=== PATIENT | female | born 1950 | race Caucasian/White ===

== ENCOUNTER → 2016-06-14 | Outpatient (CLI) | payer MEDICARE, MEDICAID ==
[2016-06-14 11:27] LABS: ABSOLUTE BASOPHILS # (AUTO) 0.1 10^3/uL (0.0-0.2); ABSOLUTE EOSINOPHILS # (AUTO) 0.2 10^3/uL (0.0-0.6); ABSOLUTE MONOCYTES (AUTO) 0.9 10^3/uL (0.1-1.4); ABSOLUTE NEUT (AUTO) 5.8 10^3/uL (1.7-8.2); BASOPHILS % (AUTO) 0.8 % (0-2); EOSINOPHILS % (AUTO) 2.1 % (0-6); HEMATOCRIT 29.5 % (36.0-47.0); HEMOGLOBIN 9.7 g/dL (12.0-15.5); HGB HCT DIFFERENCE -0.4; LYMPHOCYTES % (AUTO) 12.6 % (13-45); MEAN CORPUSCULAR HEMOGLOBIN 31.6 pg (27.0-33.4); MEAN CORPUSCULAR HGB CONC 33.1 g/dL (32.0-36.0); MEAN CORPUSCULAR VOLUME 96 fl (80-97); MONOCYTES % (AUTO) 11.3 % (3-13); RED BLOOD COUNT 3.08 10^6/uL (3.72-5.28); RED CELL DISTRIBUTION WIDTH 13.4 % (11.5-14.0); SEGMENTED NEUTROPHILS % (AUTO) 73.2 % (42-78); WHITE BLOOD COUNT 7.9 10^3/uL (4.0-10.5)
[2016-06-14 11:47] LABS: ALANINE AMINOTRANSFERASE 17 U/L (9-52); ALKALINE PHOSPHATASE 89 U/L (38-126); ANION GAP 10 (5-19); ASPARTATE AMINO TRANSFERASE 22 U/L (14-36); BILIRUBIN,TOTAL 0.4 mg/dL (0.2-1.3); BLOOD UREA NITROGEN 43 mg/dL (7-20); CALCIUM 9.3 mg/dL (8.4-10.2); CARBON DIOXIDE 20 mmol/L (22-30); CHLORIDE 113 mmol/L (98-107); CREATININE RESULT 2.87 mg/dL (0.52-1.25); GLUCOSE 105 mg/dL (75-110); MAGNESIUM 1.9 mg/dL (1.6-2.3); PHOSPHORUS 3.9 mg/dL (2.5-4.5); POTASSIUM 5.6 mmol/L (3.6-5.0); TOTAL PROTEIN 6.7 g/dL (6.3-8.2)
[2016-06-16 08:35] LABS: TACROLIMUS (FK506) 5.7 ng/mL (2.0-20.0)
== END ==
LOC: OD 09:45
PROVIDERS: ATTEND Nurse Practitioner Adult Health
DX: Z94.1 Heart transplant status (principal); Z79.899 Other long term (current) drug therapy; Z48.298 Encounter for aftercare following other organ transplant; R79.89 Other specified abnormal findings of blood chemistry
CPT/HCPCS: 36415; 80053; 80195; 80197; 83735; 84100; 85025

== ENCOUNTER 2016-06-23 10:06 | Day surgery (SDC) | payer MEDICARE, MEDICAID ==
--- NOTE | 2016-06-14 12:02 | EKG REPORT ---
SEVERITY:- ABNORMAL ECG - SINUS RHYTHM ABNORMAL T, CONSIDER ISCHEMIA, DIFFUSE LEADS : Confirmed by: Suzanna Keen MD 14-Jun-2016 12:01:04
[~2016-06-23 10:06] MED LIST: AMPICILLIN SODIUM/SULBACTAM NA 3 GM in NORMAL SALINE 100 ML IV PRN; LIDOCAINE 0.5% INJ-PF (5 MG/ML) 50 ML SDV SUBCUT PRN; NORMAL SALINE 1000 ML (RENAL PATIENTS) IV PRN
[2016-06-23] MEDS ORDERED: FENTANYL CITRATE INJ/PF 250 MCG/5 ML AMPULE ONE (10:56)
[2016-06-23] MEDS ORDERED: MIDAZOLAM 2 MG/2 ML INJ ONE (10:56)
[2016-06-23] MEDS ORDERED: EPHEDRINE SULFATE INJ 50 MG/1 ML AMPULE ONE (10:56)
[2016-06-23] MEDS ORDERED: PROPOFOL INJ 200 MG/20 ML VIAL IV ONE (10:57)
[2016-06-23] MEDS ORDERED: DEXMEDETOMIDINE INJ 80 MCG/20 ML VIAL IV ONE (10:57)
[2016-06-23] MEDS ORDERED: BUPIVACAINE HCL 0.5%/EPI 1:200000 INJ 1.8 ML CARTRIDGE ONE (11:37)
[2016-06-23] MEDS ORDERED: LIDOCAINE 2%/EPINEPHRINE INJ 1.7 ML CARTRIDGE ONE (11:37)
[2016-06-23] MEDS ORDERED: PHENYLEPHRINE HCL 0.25% NASAL SPRAY 15 ML ONE (11:51)
[2016-06-23] MEDS ORDERED: MORPHINE SULFATE 10 MG/ML INJ IV PRN (12:26)
[2016-06-23] MEDS ORDERED: FENTANYL CITRATE INJ/PF 100 MCG/2 ML AMPUL IV PRN ×3 (12:26)
[2016-06-23] MEDS ORDERED: ONDANSETRON HCL INJ/PF 4 MG/2 ML SDV IV PRN (12:26)
[2016-06-23] MEDS ORDERED: OXYCODONE-ACETAMINOPHEN 5-325 MG TABLET PO PRN ×3 (12:26→12:54)
[2016-06-23] MEDS ORDERED: PROMETHAZINE HCL INJ 25 MG/1 ML VIAL IV PRN ×2 (12:26)
[2016-06-23] MEDS ORDERED: DIPHENHYDRAMINE HCL 50 MG/ML VIAL IV PRN (12:26)
--- NOTE | 2016-06-23 12:57 | Operative Report ---
Operative Report DATE OF SURGERY: 06/23/16 PREOPERATIVE DIAGNOSIS: Dental caries POSTOPERATIVE DIAGNOSIS: Same OPERATION: Surgical extraction of teeth numbers 3, 13, 14, 15, 16, 28, 29 and 31 with alveoloplasties of the upper left and lower right quadrants SURGEON: ERIN NULL ANESTHESIA: GA TISSUE REMOVED OR ALTERED: Teeth which were discarded COMPLICATIONS: None ESTIMATED BLOOD LOSS: 20 mL INTRAOPERATIVE FINDINGS: Decayed and nonrestorable teeth PROCEDURE: The patient was brought into operating room #4 and placed on the operating room table in supine position. General anesthesia was induced via a peripheral IV and continued utilizing endotracheal intubation. The patient was then prepped and draped in the usual fashion for an intraoral procedure. A total of 4 carpules of 2% lidocaine with 1:100,000 epinephrine and 1 carpule of half percent Marcaine with 1:200,000 epinephrine were delivered to the planned surgical sites via both infiltration and nerve block. The oral cavity and oropharynx were suctioned and a moistened oropharyngeal throat pack was placed. Full-thickness mucoperiosteal flaps were then developed via envelope incisions. Ostectomy was completed as needed. Tooth #14 was sectioned. The teeth were delivered using elevators and forceps. The sockets were curetted free of any debris. There was no sinus communication noted. The nerves were not seen and the mandible was intact postoperatively. Surgifoam was placed into the extraction sockets to aid in hemostasis. The flaps were reapproximated and sutured with 4-0 chromic gut suture. The oral cavity was inspected and found to be free of debris, the throat pack was removed and the oropharynx suctioned. Gauze packs were placed bilaterally to aid in continued hemostasis. The patient was awakened from general anesthesia, extubated in the operating room and taken recovery room in spontaneous breathing fashion.
[2016-06-23] MEDS ORDERED: SUCCINYLCHOLINE CHLORIDE INJ 200 MG/10 ML VIAL ONE (14:12)
[2016-06-23] MEDS ORDERED: METOCLOPRAMIDE HCL INJ/PF 10 MG/2 ML SDV ONE (14:12)
[2016-06-23] MEDS ORDERED: LIDOCAINE 2% INJ-PF (20 MG/ML) 10 ML AMPUL ONE (14:12)
[2016-06-23] MEDS ORDERED: DEXAMETHASONE SOD PHOSPHATE INJ 4 MG/1 ML VIAL ONE (14:12)
[2016-06-23] MEDS ORDERED: ONDANSETRON HCL INJ/PF 4 MG/2 ML SDV ONE (14:12)
[2016-06-23 15:58] VITALS: BP 165/94
== END 2016-06-23 14:35 | disposition home or self-care (01) ==
LOC: OROUT 10:06
PROVIDERS: ATTEND Dentist Oral and Maxillofacial Surgery
PROC: 0CDWXZ1 Extraction of Upper Tooth, Multiple, External Approach (ICD-10-PCS; 2016-06-23)
PROC: 0NQSXZZ (ICD-10-PCS; 2016-06-23)
PROC: 0NQTXZZ Repair Right Mandible, External Approach (ICD-10-PCS; 2016-06-23)
PROC: 0CDXXZ1 Extraction of Lower Tooth, Multiple, External Approach (ICD-10-PCS; principal; 2016-06-23 12:00)
DX: K02.9 Dental caries, unspecified (principal); K08.3 Retained dental root; E87.5 Hyperkalemia; E03.9 Hypothyroidism, unspecified; E11.22 Type 2 diabetes mellitus with diabetic chronic kidney disease; I12.9 Hypertensive chronic kidney disease with stage 1 through stage 4 chronic kidney disease, or unspecified chronic kidney disease; N18.4 Chronic kidney disease, stage 4 (severe); I25.5 Ischemic cardiomyopathy; D63.1 Anemia in chronic kidney disease; K21.9 Gastro-esophageal reflux disease without esophagitis; E05.90 Thyrotoxicosis, unspecified without thyrotoxic crisis or storm; Z94.1 Heart transplant status; Z88.5 Allergy status to narcotic agent
CPT/HCPCS: 41899; 41874 ×2; 93005; 36415; 82962; 84132; 71020; 93010; J2250; J3490 ×2; J1100; J3010; J0295; J2765; A9270; J0330; J2405; J2704; 170

== ENCOUNTER → 2017-03-13 | Outpatient (CLI) | payer MEDICARE, MEDICAID | LOC: OD 10:51 | PROVIDERS: ATTEND Nurse Practitioner Adult Health | DX: Z53.9 Procedure and treatment not carried out, unspecified reason (principal) ==

== ENCOUNTER → 2017-10-11 | Outpatient (CLI) | payer MEDICARE, MEDICAID ==
--- NOTE | 2017-10-11 11:19 | RADIOLOGY REPORT (SQ) ---
EXAM DESCRIPTION: CHEST PA/LATERAL COMPLETED DATE/TIME: 10/11/2017 10:58 am REASON FOR STUDY: FLUID OVERLOAD COMPARISON: May 2016 EXAM PARAMETERS: NUMBER OF VIEWS: two views TECHNIQUE: Digital Frontal and Lateral radiographic views of the chest acquired. RADIATION DOSE: NA LIMITATIONS: none FINDINGS: LUNGS AND PLEURA: No opacities, masses or pneumothorax. No pleural effusion. MEDIASTINUM AND HILAR STRUCTURES: No masses or contour abnormalities. HEART AND VASCULAR STRUCTURES: Cardiac silhouette remains enlarged and is unchanged in configuration. BONES: No acute findings. HARDWARE: Patient is status post median sternotomy. OTHER: No other significant finding. IMPRESSION: No significant interval change. No acute findings. Other findings as noted above TECHNICAL DOCUMENTATION: JOB ID: [id number] [employer]- All Rights Reserved Reading location - IP/workstation name: [email or web address]
== END ==
LOC: RAD 10:37
PROVIDERS: ATTEND Internal Medicine Nephrology
DX: E87.70 Fluid overload, unspecified (principal)
CPT/HCPCS: 71046

== ENCOUNTER 2017-12-17 14:23 | Emergency (ER) | payer MEDICARE, MEDICAID ==
[2017-12-17] MEDS ORDERED: NORMAL SALINE 1000 ML 500 ML IV ONE ×2 (14:28→17:44)
--- NOTE | 2017-12-17 14:33 | ER Document Report ---
ED Syncope and Near Syncope - General Stated Complaint: POSSIBLE SYNCOPE Time Seen by Provider: 12/17/17 14:26 Mode of Arrival: Stretcher Information source: Patient, Emergency Med Personnel TRAVEL OUTSIDE OF THE [place] IN LAST 30 DAYS: No - HPI Patient complains to provider of: Fainting Episode witnessed (by whom): Yes Symptoms prior to episode: Dizziness, Lightheaded Position/Activity at time of episode: Sitting Quality of pain: Achy Context: Became unresponsive, Collapsed Injury location: Head, LUE Similar symptoms previously: Yes Recently seen / treated by doctor: Yes Notes: Patient is a 67-year-old female presenting to the emergency room via EMS after syncopal episode, patient was at a restaurant sitting at a table when she passed out and fell to the floor, hitting the left side of her head and her left upper extremity, bystanders at the restaurant claim patient was out for less than 10 patient has a history of similar episodes in the past, she also has a history of end-stage renal disease and, reports feeling dizzy and lightheaded just before the episode, feeling better now, blood pressure still somewhat low, denies any fever, no nausea or vomiting, no cough cold congestion , no fever or chills - Related Data Allergies/Adverse Reactions: adhesive tape Allergy (Severe, Verified 12/17/17 14:42) rash meperidine HCl [From Demerol] Allergy (Severe, Verified 12/17/17 14:42) Nausea Past Medical History - General Information source: Patient - Social History Smoking Status: Unknown if Ever Smoked Family History: Reviewed & Not Pertinent - Past Medical History Cardiac Medical History: Reports: Hx Coronary Artery Disease, Hx Hypertension Denies: Hx Heart Attack Pulmonary Medical History: Denies: Hx Asthma, Hx Bronchitis, Hx COPD, Hx Pneumonia Neurological Medical History: Reports: Hx Cerebrovascular Accident - 1996 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 Denies: Hx Seizures GI Medical History: Reports: Hx Hiatal Hernia. Denies: Hx Hepatitis, Hx Ulcer Musculoskeletal Medical History: Reports Hx Arthritis - "all over" Infectious Medical History: Denies: Hx Hepatitis Past Surgical History: Reports: Hx Open Heart Surgery - HEART TRANSPLANT, CABG X2. Denies: Hx Mastectomy, Hx Pacemaker - Immunizations Hx Diphtheria, Pertussis, Tetanus Vaccination: Yes Hx Pneumococcal Vaccination: 02/02/11 Review of Systems - Review of Systems Constitutional: No symptoms reported EENT: No symptoms reported Cardiovascular: See HPI Respiratory: No symptoms reported Gastrointestinal: No symptoms reported Genitourinary: No symptoms reported Female Genitourinary: No symptoms reported Musculoskeletal: See HPI Skin: See HPI Hematologic/Lymphatic: No symptoms reported Neurological/Psychological: No symptoms reported -: Yes All other systems reviewed and negative Physical Exam - Vital signs Vitals: Resp Pulse Ox 10 L 99 12/17/17 14:34 12/17/17 14:34 Interpretation: Hypotensive - General General appearance: Alert In distress: None Notes: Chronically ill-appearing - HEENT Head: Normocephalic, Abrasions - 1.5 cm abrasion to left temporal region Eyes: Normal Conjunctiva: Normal Extraocular movements intact: Yes Eyelashes: Normal Pupils: PERRL Pharynx: Normal Neck: Normal - Respiratory Respiratory status: No respiratory distress Chest status: Nontender Breath sounds: Normal Chest palpation: Normal - Cardiovascular Rhythm: Regular Heart sounds: Normal auscultation Murmur: No - Abdominal Inspection: Normal, Other - Peritoneal dialysis catheter in right lower quadrant , no drainage, no erythema, no swelling Distension: No distension Bowel sounds: Normal Tenderness: Nontender Organomegaly: No organomegaly - Back Back: Normal, Nontender - Extremities General upper extremity: Normal ROM General lower extremity: Normal inspection, Nontender, Edema, Normal color, Normal ROM, Normal temperature Arm: Other - Large skin tear to left upper arm - Neurological Neuro grossly intact: Yes Cognition: Normal Orientation: AAOx4 [place] Coma Scale Eye Opening: Spontaneous [place] Coma Scale Verbal: Oriented [place] Coma Scale Motor: Obeys Commands [place] Coma Scale Total: 15 Speech: Normal Motor strength normal: LUE, RUE, LLE, RLE Sensory: Normal - Psychological Associated symptoms: Normal affect, Normal mood - Skin Skin Temperature: Warm Skin Moisture: Dry Skin Color: Pale Course - Re-evaluation Re-evalutation: 12/17/17 19:49 Patient reports feeling much better, no further episodes of dizziness or syncope , lab and imaging findings were discussed at bedside, I also discussed the possibility of an observation admission for continued gentle fluid rehydration, however patient stated she feels well enough to go home and will follow up with her primary care provider and her herbicide service sales representative, family at bedside is in agreement with this as well, therefore patient will be discharged with instructions for follow-up and strict return precautions, patient acknowledges understanding and agreement with this plan - Vital Signs Vital signs: Temp Pulse Resp BP Pulse Ox 98.1 F 77 20 100/58 L 98 12/17/17 14:51 12/17/17 15:54 12/17/17 19:41 12/17/17 19:41 12/17/17 19:41 - Laboratory Result Diagrams: 12/17/17 17:25 12/17/17 14:40 Laboratory results interpreted by me: 12/17/17 12/17/17 12/17/17 14:40 17:25 19:13 RBC 2.71 L Hgb 8.1 L Hct 24.6 L RDW 18.4 H Seg Neuts % (Manual) 82 H Lymphocytes % (Manual) 12 L Sodium 134.1 L Chloride 96 L BUN 28 H Creatinine 8.24 H Est GFR ( Amer) 6 L Est GFR (Non-Af Amer) 5 L Glucose 194 H Calcium 7.0 L* Magnesium 1.5 L Total Protein 5.2 L Albumin 2.2 L Urine Protein 100 H Urine Ketones TRACE H Urine Urobilinogen 2.0 H Ur Leukocyte Esterase MODERATE H - Diagnostic Test Radiology reviewed: Image reviewed, Reports reviewed - EKG Interpretation by Me EKG shows normal: Sinus rhythm Rate: Normal Rhythm: NSR When compared to previous EKG there are: No significant change Discharge - Discharge Clinical Impression: Dehydration, Hypocalcemia Syncope Qualifiers: Syncope type: unspecified Qualified Code(s): R55 - Syncope and collapse Condition: Stable Disposition: HOME, SELF-CARE Instructions: Dehydration ([facility]), Syncopal Episode ([facility]) Additional Instructions: Follow up with your primary care provider and herbicide service sales representative in one to 2 days. Return to the emergency room immediately if symptoms worsen or any additional concerns. Prescriptions: Calcium Carbonate [Calcium] 500 mg PO DAILY #30 tab.chew Referrals: Aleks VAZQUEZ MD [ACTIVE STAFF] - Follow up as needed
[2017-12-17 15:16] LABS: ALANINE AMINOTRANSFERASE 32 U/L (9-52); ALBUMIN 2.2 g/dL (3.5-5.0); ALKALINE PHOSPHATASE 88 U/L (38-126); ANION GAP 11 (5-19); ASPARTATE AMINO TRANSFERASE 36 U/L (14-36); BILIRUBIN,DIRECT 0.3 mg/dL (0.0-0.4); BILIRUBIN,TOTAL 0.3 mg/dL (0.2-1.3); BLOOD UREA NITROGEN 28 mg/dL (7-20); CARBON DIOXIDE 27 mmol/L (22-30); CHLORIDE 96 mmol/L (98-107); CREATINE KINASE 131 U/L (30-135); GLUCOSE 194 mg/dL (75-110); POTASSIUM 3.7 mmol/L (3.6-5.0); SODIUM 134.1 mmol/L (137-145); TOTAL PROTEIN 5.2 g/dL (6.3-8.2)
--- NOTE | 2017-12-17 15:25 | RADIOLOGY REPORT (SQ) ---
EXAM DESCRIPTION: CT HEAD WITHOUT COMPLETED DATE/TIME: 12/17/2017 3:17 pm REASON FOR STUDY: injury COMPARISON: None. TECHNIQUE: Axial images acquired through the brain without intravenous contrast. Images reviewed wi th bone, brain and subdural windows. Additional sagittal and coronal reconstructions were generated. Images stored on PACS. All CT scanners at this facility use dose modulation, iterative reconstruction, and/or weight based d osing when appropriate to reduce radiation dose to as low as reasonably achievable (ALARA). [facility]: Dose Right [facility]: CareDose [facility]: Dose Right [facility]: Teradose 4D [facility]: BioCurity RADIATION DOSE: CT Rad equipment meets quality standard of care and radiation dose reduction techniq ues were employed. CTDIvol: 53.2 mGy. DLP: 964 mGy-cm.mGy. LIMITATIONS: None. FINDINGS: VENTRICLES: Prominent. CEREBRUM: No masses. No hemorrhage. No midline shift. Areas of low density in the white matter mos t likely due to chronic micro-vascular ischemic change. No evidence for acute infarction. CEREBELLUM: No masses. No hemorrhage. No alteration of density. No evidence for acute infarction. EXTRAAXIAL SPACES: Age-related involutional change. No fluid collections. No masses. ORBITS AND GLOBE: No intra- or extraconal masses. Normal contour of globe without masses. CALVARIUM: No fracture. PARANASAL SINUSES: Mucosal nodule in the right maxillary sinus. SOFT TISSUES: No mass or hematoma. OTHER: No other significant finding. IMPRESSION: CHRONIC CHANGES OF ATROPHY AND MICROVASCULAR ISCHEMIA. NO ACUTE PROCESS. EVIDENCE OF ACUTE STROKE: NO. TECHNICAL DOCUMENTATION: JOB ID: [id number] Quality ID # [id number]: Final reports with documentation of one or more dose reduction techniques (e.g., Au tomated exposure control, adjustment of the mA and/or kV according to patient size, use of iterative reconstruction technique) 2010 [employer]- All Rights Reserved Reading location - IP/workstation name: [email or web address]
[2017-12-17 15:29] LABS: CREATINE KINASE MB 0.65 ng/mL (<4.55); TROPONIN I 0.022 ng/mL
[2017-12-17] MEDS ORDERED: CALCIUM GLUCONATE 1000 MG/10 ML INJ IV ONE (15:59)
[2017-12-17 18:05] LABS: HEMATOCRIT 24.6 % (36.0-47.0); HEMOGLOBIN 8.1 g/dL (12.0-15.5); MEAN CORPUSCULAR HEMOGLOBIN 29.8 pg (27.0-33.4); MEAN CORPUSCULAR HGB CONC 32.7 g/dL (32.0-36.0); MEAN CORPUSCULAR VOLUME 91 fl (80-97); PLATELET COUNT 197 10^3/uL (150-450); RED BLOOD COUNT 2.71 10^6/uL (3.72-5.28); RED CELL DISTRIBUTION WIDTH 18.4 % (11.5-14.0); WHITE BLOOD COUNT 8.9 10^3/uL (4.0-10.5)
[2017-12-17 18:06] LABS: ABSOLUTE LYMPHOCYTES# (MANUAL) 1.1 10^3/uL (0.5-4.7); ABSOLUTE MONOCYTES # (MANUAL) 0.3 10^3/uL (0.1-1.4); ABSOLUTE NEUTROPHILS# (MANUAL) 7.3 10^3/uL (1.7-8.2); BASOPHILS % (MANUAL) 1 % (0-2); EOSINOPHILS % (MANUAL) 2 % (0-6); LYMPHOCYTES % (MANUAL) 12 % (13-45); MONOCYTES % (MANUAL) 3 % (3-13); SEGMENTED NEUTROPHILS % (MAN) 82 % (42-78); TOTAL CELLS COUNTED 100
[2017-12-17 18:07] LABS: ANISOCYTOSIS 2+; OVALOCYTES SLIGHT; PLATELET COMMENT ADEQUATE; POIKILOCYTOSIS SLIGHT; POLYCHROMASIA SLIGHT
[2017-12-17 19:37] LABS: APPEARANCE,URINE CLOUDY; BILIRUBIN,URINE NEGATIVE (NEGATIVE); GLUCOSE, URINE NEGATIVE (NEGATIVE); KETONES,URINE TRACE mg/dL (NEGATIVE); LEUKOCYTE ESTERASE,URINE MODERATE (NEGATIVE); NITRITE,URINE NEGATIVE (NEGATIVE); PROTEIN,URINE 100 mg/dL (NEGATIVE); URINE SPECIFIC GRAVITY 1.019
[2017-12-17 19:42] LABS: COLOR,URINE YELLOW
[2017-12-17 20:50] VITALS: BP 98/60
--- NOTE | 2017-12-18 08:06 | EKG REPORT ---
SEVERITY:- ABNORMAL ECG - SINUS RHYTHM BORDERLINE PROLONGED QT INTERVAL ABNORMAL T INVERSIONS , UNCHANGED FROM 06/14/16 EKG : Confirmed by: Jake Le MD 18-Dec-2017 08:05:32
== END 2017-12-17 20:50 | disposition home or self-care (01) ==
LOC: ER 14:23
DX: R55 Syncope and collapse (principal); E86.0 Dehydration; E83.51 Hypocalcemia; S41.112A Laceration without foreign body of left upper arm, initial encounter; S00.81XA Abrasion of other part of head, initial encounter; W18.39XA Other fall on same level, initial encounter; Y92.511 Restaurant or cafe as the place of occurrence of the external cause; I25.10 Atherosclerotic heart disease of native coronary artery without angina pectoris; I12.0 Hypertensive chronic kidney disease with stage 5 chronic kidney disease or end stage renal disease; N18.6 End stage renal disease; Z99.2 Dependence on renal dialysis; Z95.1 Presence of aortocoronary bypass graft; Z91.048 Other nonmedicinal substance allergy status; Z88.5 Allergy status to narcotic agent; Z94.1 Heart transplant status
CPT/HCPCS: 93005; 99285; 96361; 96365; 36415; 82553; 82550; 83735; 85025; 80053; 81001; 84484; 70450; 93010; J0610; J7030

== ENCOUNTER → 2017-12-21 | Outpatient (CLI) | payer MEDICARE, MEDICAID ==
[2017-12-21 12:19] LABS: ALANINE AMINOTRANSFERASE 27 U/L (9-52); ALBUMIN 2.3 g/dL (3.5-5.0); ALKALINE PHOSPHATASE 98 U/L (38-126); ANION GAP 10 (5-19); ASPARTATE AMINO TRANSFERASE 38 U/L (14-36); BILIRUBIN,DIRECT 0.4 mg/dL (0.0-0.4); BILIRUBIN,TOTAL 0.4 mg/dL (0.2-1.3); BLOOD UREA NITROGEN 32 mg/dL (7-20); C-REACTIVE PROTEIN 13.6 mg/L (<10.0); CARBON DIOXIDE 27 mmol/L (22-30); CHLORIDE 96 mmol/L (98-107); GLUCOSE 123 mg/dL (75-110); POTASSIUM 3.5 mmol/L (3.6-5.0); SODIUM 133.3 mmol/L (137-145); TOTAL PROTEIN 5.5 g/dL (6.3-8.2)
--- NOTE | 2017-12-21 13:46 | RADIOLOGY REPORT (SQ) ---
EXAM DESCRIPTION: CHEST PA/LATERAL COMPLETED DATE/TIME: 12/21/2017 12:42 pm REASON FOR STUDY: ENDOCARDITIS COMPARISON: 10/11/2017 EXAM PARAMETERS: NUMBER OF VIEWS: two views TECHNIQUE: Digital Frontal and Lateral radiographic views of the chest acquired. RADIATION DOSE: NA LIMITATIONS: none FINDINGS: LUNGS AND PLEURA: No opacities, masses or pneumothorax. No pleural effusion. MEDIASTINUM AND HILAR STRUCTURES: No masses or contour abnormalities. HEART AND VASCULAR STRUCTURES: Stable in appearance. No failure. BONES: No acute findings. HARDWARE: Sternotomy wires are in place. OTHER: No other significant finding. IMPRESSION: NO SIGNIFICANT RADIOGRAPHIC FINDING IN THE CHEST. TECHNICAL DOCUMENTATION: JOB ID: [id number] [email or web address]- All Rights Reserved Reading location - IP/workstation name: [email or web address]
[2017-12-21 16:40] LABS: HEMATOCRIT 25.8 % (36.0-47.0); HEMOGLOBIN 8.5 g/dL (12.0-15.5); MEAN CORPUSCULAR HEMOGLOBIN 29.9 pg (27.0-33.4); MEAN CORPUSCULAR HGB CONC 32.9 g/dL (32.0-36.0); MEAN CORPUSCULAR VOLUME 91 fl (80-97); RED BLOOD COUNT 2.84 10^6/uL (3.72-5.28); RED CELL DISTRIBUTION WIDTH 20.1 % (11.5-14.0)
[2017-12-21 16:47] LABS: PLATELET COUNT 52 10^3/uL (150-450)
[2017-12-21 18:09] LABS: ABSOLUTE MONOCYTES # (MANUAL) 0.7 10^3/uL (0.1-1.4); ABSOLUTE NEUTROPHILS# (MANUAL) 4.1 10^3/uL (1.7-8.2); ANISOCYTOSIS SLIGHT; BASOPHILS % (MANUAL) 0 % (0-2); EOSINOPHILS % (MANUAL) 3 % (0-6); HYPOCHROMASIA SLIGHT; LYMPHOCYTES % (MANUAL) 16 % (13-45); MONOCYTES % (MANUAL) 12 % (3-13); POLYCHROMASIA SLIGHT; SEGMENTED NEUTROPHILS % (MAN) 69 % (42-78); TOTAL CELLS COUNTED 100
[2017-12-21 18:10] LABS: PLATELET CLUMPS PRESENT
[2017-12-21 18:11] LABS: PLATELET COMMENT DECREASED
== END ==
LOC: OD 10:23
PROVIDERS: ATTEND Physician Assistant Medical
DX: I38 Endocarditis, valve unspecified (principal); R63.4 Abnormal weight loss; E88.09 Other disorders of plasma-protein metabolism, not elsewhere classified
CPT/HCPCS: 36415; 71046; 80053; 82533; 84443; 85025; 85652; 86140; 87040

== ENCOUNTER → 2018-02-05 | Outpatient (CLI) | payer MEDICARE, MEDICAID ==
[2018-02-05 11:17] LABS: VANCOMYCIN,TROUGH 20.3 ug/mL (5.0-20.0)
== END ==
LOC: DAVITANR 09:56
PROVIDERS: ATTEND Internal Medicine Nephrology
DX: K65.9 Peritonitis, unspecified (principal)
CPT/HCPCS: 80202

== ENCOUNTER → 2018-02-10 | Outpatient (CLI) | payer MEDICARE, MEDICAID ==
[2018-02-10 11:11] LABS: ALANINE AMINOTRANSFERASE 39 U/L (9-52); ALBUMIN 2.5 g/dL (3.5-5.0); ALKALINE PHOSPHATASE 135 U/L (38-126); ANION GAP 10 (5-19); ASPARTATE AMINO TRANSFERASE 58 U/L (14-36); BILIRUBIN,DIRECT 0.3 mg/dL (0.0-0.4); BILIRUBIN,TOTAL 0.3 mg/dL (0.2-1.3); BLOOD UREA NITROGEN 42 mg/dL (7-20); CALCIUM 8.5 mg/dL (8.4-10.2); CARBON DIOXIDE 27 mmol/L (22-30); CHLORIDE 97 mmol/L (98-107); GLUCOSE 142 mg/dL (75-110); TOTAL PROTEIN 5.7 g/dL (6.3-8.2)
[2018-02-10 12:46] LABS: ABSOLUTE BASOPHILS # (AUTO) 0.1 10^3/uL (0.0-0.2); ABSOLUTE EOSINOPHILS # (AUTO) 0.1 10^3/uL (0.0-0.6); ABSOLUTE MONOCYTES (AUTO) 0.6 10^3/uL (0.1-1.4); ABSOLUTE NEUT (AUTO) 5.3 10^3/uL (1.7-8.2); BASOPHILS % (AUTO) 0.9 % (0-2); EOSINOPHILS % (AUTO) 0.7 % (0-6); HEMATOCRIT 32.8 % (36.0-47.0); HEMOGLOBIN 10.8 g/dL (12.0-15.5); LYMPHOCYTES % (AUTO) 14.3 % (13-45); MEAN CORPUSCULAR HEMOGLOBIN 31.5 pg (27.0-33.4); MEAN CORPUSCULAR HGB CONC 33.1 g/dL (32.0-36.0); MEAN CORPUSCULAR VOLUME 95 fl (80-97); MONOCYTES % (AUTO) 8.4 % (3-13); PLATELET COUNT 182 10^3/uL (150-450); RED BLOOD COUNT 3.44 10^6/uL (3.72-5.28); RED CELL DISTRIBUTION WIDTH 15.8 % (11.5-14.0); SEGMENTED NEUTROPHILS % (AUTO) 75.7 % (42-78); TOTAL CELLS COUNTED % (AUTO) 100 %; WHITE BLOOD COUNT 6.9 10^3/uL (4.0-10.5)
[2018-02-13 13:44] LABS: SIROLIMUS (RAPAMUNE) 11.6 ng/mL (3.0-20.0); TACROLIMUS (FK506) 11.3 ng/mL (2.0-20.0)
== END ==
LOC: OD 09:24
PROVIDERS: ATTEND Nurse Practitioner Adult Health
DX: Z48.298 Encounter for aftercare following other organ transplant (principal); Z94.1 Heart transplant status; R79.89 Other specified abnormal findings of blood chemistry; Z79.899 Other long term (current) drug therapy; K65.9 Peritonitis, unspecified; Z79.2 Long term (current) use of antibiotics
CPT/HCPCS: 36415; 80053; 80195; 80197; 80202; 83735; 85025

== ENCOUNTER → 2018-03-08 | Outpatient (CLI) | payer MEDICARE, MEDICAID ==
[2018-03-08 13:20] LABS: ANION GAP 11 (5-19); BLOOD UREA NITROGEN 38 mg/dL (7-20); CALCIUM 7.9 mg/dL (8.4-10.2); CARBON DIOXIDE 30 mmol/L (22-30); CHLORIDE 93 mmol/L (98-107); GLUCOSE 242 mg/dL (75-110); POTASSIUM 5.2 mmol/L (3.6-5.0); SODIUM 133.7 mmol/L (137-145)
== END ==
LOC: OD 12:26
PROVIDERS: ATTEND Nurse Practitioner Adult Health
DX: Z48.298 Encounter for aftercare following other organ transplant (principal); R79.89 Other specified abnormal findings of blood chemistry; Z94.1 Heart transplant status; Z79.899 Other long term (current) drug therapy
CPT/HCPCS: 36415; 80048; 80195; 80197

== ENCOUNTER → 2018-03-12 | Outpatient (CLI) | payer MEDICARE, MEDICAID ==
[2018-03-12 12:10] LABS: ABSOLUTE BASOPHILS # (AUTO) 0.1 10^3/uL (0.0-0.2); ABSOLUTE EOSINOPHILS # (AUTO) 0.1 10^3/uL (0.0-0.6); ABSOLUTE LYMPHOCYTES (AUTO) 0.7 10^3/uL (0.5-4.7); ABSOLUTE MONOCYTES (AUTO) 0.6 10^3/uL (0.1-1.4); ABSOLUTE NEUT (AUTO) 4.1 10^3/uL (1.7-8.2); BASOPHILS % (AUTO) 1.2 % (0-2); EOSINOPHILS % (AUTO) 2.3 % (0-6); HEMATOCRIT 31.8 % (36.0-47.0); HEMOGLOBIN 10.7 g/dL (12.0-15.5); LYMPHOCYTES % (AUTO) 12.7 % (13-45); MEAN CORPUSCULAR HEMOGLOBIN 32.1 pg (27.0-33.4); MEAN CORPUSCULAR HGB CONC 33.6 g/dL (32.0-36.0); MEAN CORPUSCULAR VOLUME 96 fl (80-97); MONOCYTES % (AUTO) 10.3 % (3-13); RED BLOOD COUNT 3.33 10^6/uL (3.72-5.28); RED CELL DISTRIBUTION WIDTH 15.8 % (11.5-14.0); SEGMENTED NEUTROPHILS % (AUTO) 73.5 % (42-78); TOTAL CELLS COUNTED % (AUTO) 100 %; WHITE BLOOD COUNT 5.5 10^3/uL (4.0-10.5)
[2018-03-12 12:29] LABS: PLATELET COUNT 122 10^3/uL (150-450)
== END ==
LOC: OD 11:40
PROVIDERS: ATTEND Nurse Practitioner Adult Health
DX: Z51.81 Encounter for therapeutic drug level monitoring (principal); Z94.1 Heart transplant status; Z79.899 Other long term (current) drug therapy
CPT/HCPCS: 36415; 85025

== ENCOUNTER 2018-05-18 15:08 | Inpatient (IN) | payer MEDICARE, MEDICAID ==
[~2018-05-18 15:08] MED LIST changes: -AMPICILLIN SODIUM/SULBACTAM NA 3 GM in NORMAL SALINE 100 ML IV PRN; +DEXAMETHASONE SOD PHOSPHATE INJ 4 MG/1 ML VIAL ONE; -LIDOCAINE 0.5% INJ-PF (5 MG/ML) 50 ML SDV SUBCUT PRN; +LIDOCAINE 2% INJ-PF (20 MG/ML) 2 ML AMPUL ONE; -NORMAL SALINE 1000 ML (RENAL PATIENTS) IV PRN; +ONDANSETRON HCL INJ/PF 4 MG/2 ML SDV ONE; +SUCCINYLCHOLINE CHLORIDE INJ 200 MG/10 ML VIAL ONE
--- NOTE | 2018-05-18 19:09 | ER Document Report ---
ED General - General Chief Complaint: Abdominal Pain Stated Complaint: ABDOMINAL PAIN/VOMITING Time Seen by Provider: 05/18/18 18:28 Notes: Patient is a 67-year-old female with a past medical history of PD dialysis dependence, cardiac transplant, presents complaining of 4-5 hours of progressively worsening pain to her incisional hernia. Patient states that she has a long-standing history of an incisional hernia that usually does not cause her any symptoms. She states that today however at approximately 1500s it became increasingly painful. Noted that it was swollen, firm and nonreducible. She describes the pain as a severe, stabbing, constant pain. Touching the area or moving worsens the pain. Nothing improves the pain. She has had one episode of vomiting and remains nauseous at this time. No history of similar symptoms in the past. She has never had surgery to the area. She has not contacted her general physician regarding today's concerns. TRAVEL OUTSIDE OF THE [place] IN LAST 30 DAYS: No - Related Data Allergies/Adverse Reactions: adhesive tape Allergy (Severe, Verified 05/18/18 15:10) rash meperidine HCl [From Demerol] Allergy (Severe, Verified 05/18/18 15:10) Nausea Past Medical History - General Information source: Patient - Social History Smoking Status: Never Smoker Chew tobacco use (# tins/day): No Frequency of alcohol use: None Drug Abuse: None Lives with: Family Family History: Reviewed & Not Pertinent Patient has suicidal ideation: No Patient has homicidal ideation: No - Past Medical History Cardiac Medical History: Reports: Hx Coronary Artery Disease, Hx Hypertension Denies: Hx Heart Attack Pulmonary Medical History: Denies: Hx Asthma, Hx Bronchitis, Hx COPD, Hx Pneumonia Neurological Medical History: Reports: Hx Cerebrovascular Accident - 1996 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 Denies: Hx Seizures Renal/ Medical History: Reports: Hx Peritoneal Dialysis - done today GI Medical History: Reports: Hx Hiatal Hernia. Denies: Hx Hepatitis, Hx Ulcer Musculoskeletal Medical History: Reports Hx Arthritis - "all over" Infectious Medical History: Denies: Hx Hepatitis Past Surgical History: Reports: Hx Open Heart Surgery - HEART TRANSPLANT, CABG X2, Hx Orthopedic Surgery - left knee. Denies: Hx Mastectomy, Hx Pacemaker - Immunizations Hx Diphtheria, Pertussis, Tetanus Vaccination: Yes Hx Pneumococcal Vaccination: 02/02/11 Review of Systems - Review of Systems Notes: Constitutional: Negative for fever. HENT: Negative for sore throat. Eyes: Negative for visual changes. Cardiovascular: Negative for chest pain. Respiratory: Negative for shortness of breath. Gastrointestinal: Positive for umbilical hernia pain and vomiting Genitourinary: Negative for dysuria. Musculoskeletal: Negative for back pain. Skin: Negative for rash. Neurological: Negative for headaches, weakness or numbness. 10 point ROS negative except as marked above and in HPI. Physical Exam - Vital signs Vitals: Temp Pulse Resp BP Pulse Ox 97.4 F 92 20 140/81 H 100 05/18/18 15:38 05/18/18 15:38 05/18/18 15:38 05/18/18 15:38 05/18/18 15:38 Interpretation: Normal Notes: PHYSICAL EXAMINATION: GENERAL: Appears older than stated age, in obvious pain HEAD: Atraumatic, normocephalic. EYES: Pupils equal round and reactive to light, extraocular movements intact, sclera anicteric, conjunctiva are normal. ENT: nares patent, oropharynx clear without exudates. Moderately dry NECK: Normal range of motion, supple without lymphadenopathy LUNGS: Breath sounds clear to auscultation bilaterally and equal. No wheezes rales or rhonchi. HEART: Regular rate and rhythm without murmurs ABDOMEN: There is approximately a 2 x 3 cm incisional hernia that is firm, nonreducible exquisitely tender to palpation. The remainder the abdominal exam is quite benign without any areas of focal tenderness, rebound or guarding EXTREMITIES: Normal range of motion, trace edema in the bilateral lower 70s that is equal and symmetric. No cyanosis. NEUROLOGICAL: No focal neurological deficits. Moves all extremities spontaneously and on command. PSYCH: Normal mood, normal affect. SKIN: Warm, Dry, normal turgor, no rashes or lesions noted. Course - Re-evaluation Re-evalutation: 05/18/18 19:09 Patient presents with an incisional incarcerated, strangulated hernia completely nonreducible on exam has been ongoing since approximately 1500 today. The patient is in exquisite pain and palpation of the area dramatically worsens the pain. It does not reduce in any fashion on palpation. Patient is a poor operative candidate given that she does have a cardiac transplant in his PD dialysis dependent at baseline. However, I have immediately contacted the surgeon on-call Dr. Shrestha is a believe that this does require emergent operative management and would likely be unsafe for transfer to a higher capacity facility as a delay in care would likely result in bowel ischemia and worsening operative course. I have therefore contacted Dr. Shrestha and requested emergent evaluation. 05/18/18 19:22 Dr. Shrestha has seen and evaluated the patient and agrees that she requires emergent operative management. He has accepted the patient to the operating room. - Vital Signs Vital signs: Temp Pulse Resp BP Pulse Ox 97.4 F 92 20 140/81 H 100 05/18/18 15:38 05/18/18 15:38 05/18/18 15:38 05/18/18 15:38 05/18/18 15:38 - Laboratory Result Diagrams: 05/18/18 18:43 05/18/18 18:43 Laboratory results interpreted by me: 05/18/18 18:43 Sodium 134.3 L Chloride 97 L BUN 38 H Creatinine 8.58 H Est GFR ( Amer) 6 L Est GFR (Non-Af Amer) 5 L Glucose 155 H Calcium 8.2 L Alkaline Phosphatase 139 H Total Protein 6.1 L Albumin 2.9 L Discharge - Discharge Clinical Impression: Incarcerated incisional hernia following transplant Nausea and vomiting Qualifiers: Vomiting type: unspecified Vomiting Intractability: non-intractable Qualified Code(s): R11.2 - Nausea with vomiting, unspecified Condition: Fair Disposition: ADMITTED INPATIENT Admitting Provider: Surgicalist Unit Admitted: OR
[2018-05-18] MEDS ORDERED: NORMAL SALINE 1000 ML 1,000 ML IV ONE (19:11)
[2018-05-18] MEDS ORDERED: MORPHINE SULFATE 10 MG/ML INJ IV PRN ×2 (19:11→22:56)
[2018-05-18] MEDS ORDERED: ONDANSETRON HCL INJ/PF 4 MG/2 ML SDV IV ONE (19:11)
[2018-05-18 19:13] LABS: ALANINE AMINOTRANSFERASE 20 U/L (9-52); ALBUMIN 2.9 g/dL (3.5-5.0); ALKALINE PHOSPHATASE 139 U/L (38-126); ANION GAP 8 (5-19); ASPARTATE AMINO TRANSFERASE 19 U/L (14-36); BILIRUBIN,DIRECT 0.3 mg/dL (0.0-0.4); BILIRUBIN,TOTAL 0.3 mg/dL (0.2-1.3); BLOOD UREA NITROGEN 38 mg/dL (7-20); CALCIUM 8.2 mg/dL (8.4-10.2); CARBON DIOXIDE 29 mmol/L (22-30); CHLORIDE 97 mmol/L (98-107); GLUCOSE 155 mg/dL (75-110); LIPASE 193.6 U/L (23-300); POTASSIUM 4.1 mmol/L (3.6-5.0); SODIUM 134.3 mmol/L (137-145); TOTAL PROTEIN 6.1 g/dL (6.3-8.2)
--- NOTE | 2018-05-18 19:41 | PDOC H&P ---
History of Present Illness Admission Date/PCP: Aleks VAZQUEZ MD Patient complains of: abdominal pains with vomiting History of Present Illness: IRIS VENCES is a 67 year old female who suddenly c/o severe abdominal pains around a nonreducible abdominal incisional hernia at around 1300 today. She has a history of heart transplant 18 years ago and started Peritoneal Dialysis 8 months ago. She just gave herself a PD treatment this am. She did vomit on the way to the hospital. The ER physician unable to reduce the hernia. Past Medical History Cardiac Medical History: Reports: Coronary Artery Disease, Hypertension Denies: Myocardial Infarction Pulmonary Medical History: Denies: Asthma, Bronchitis, Chronic Obstructive Pulmonary Disease (COPD), Pneumonia Neurological Medical History: Denies: Seizures GI Medical History: Reports: Hiatal Hernia Denies: Hepatitis Musculoskeltal Medical History: Reports: Arthritis - "all over" Hematology: Reports: Anemia Denies: Sickle Cell Disease Past Surgical History Past Surgical History: Reports: Orthopedic Surgery - left knee, Other - heart transplant 18 years ago. PD catheter for Dialysis 8 months ago Denies: Amputation, Mastectomy, Pacemaker Social History Smoking Status: Never Smoker Family History Family History: Reviewed & Not Pertinent Parental Family History Reviewed: Yes Children Family History Reviewed: No Sibling(s) Family History Reviewed.: No Medication/Allergy Home Medications: Calcium Carbonate/Vitamin D3 [Calcium 600 + Vit D 200 Tablet] 1 each PO DAILY 11/19/12 Ergocalciferol (Vitamin D2) [Vitamin D] 400 unit PO DAILY 11/19/12 Ezetimibe [Zetia 10 Mg Tablet] 10 mg PO ASDIR PRN 11/19/12 Levothyroxine Sodium 125 mcg PO ASDIR PRN 11/19/12 Ramipril [Altace 10 mg Capsule] 1 cap PO DAILY 11/19/12 Rosuvastatin Calcium [Crestor 20 mg Tablet] 20 mg PO DAILY 11/19/12 Sirolimus [Rapamune] 1 mg PO ASDIR PRN 11/19/12 Vitamin E [Eloy's Jaiden E] 480 gm TP ASDIR PRN 11/19/12 Tacrolimus Anhydrous [Prograf 0.5 Mg Capsule] 0.5 mg PO BID 11/23/12 Ferrous Sulfate [Feosol 325 mg Tablet] 325 mg PO DAILY 07/22/13 Calcium Carbonate [Calcium] 500 mg PO DAILY #30 tab.chew 12/17/17 Allergies/Adverse Reactions: adhesive tape Allergy (Severe, Verified 05/18/18 15:10) rash meperidine HCl [From Demerol] Allergy (Severe, Verified 05/18/18 15:10) Nausea Review of Systems Constitutional: PRESENT: other - no fever/chills Eyes: PRESENT: other - no visual/hearing changes Cardiovascular: PRESENT: other - no chest pains Respiratory: PRESENT: cough Gastrointestinal: PRESENT: abdominal pain, vomiting Hematologic/Lymphatic: PRESENT: other - no easy bruising Physical Exam Vital Signs: Temp Pulse Resp BP Pulse Ox 97.4 F 92 20 140/81 H 100 05/18/18 15:38 05/18/18 15:38 05/18/18 15:38 05/18/18 15:38 05/18/18 15:38 Intake & Output 05/17/18 05/18/18 05/19/18 06:59 06:59 06:59 Weight 55.9 kg General appearance: PRESENT: severe distress Head exam: PRESENT: atraumatic Eye exam: PRESENT: conjunctiva pink Mouth exam: PRESENT: moist Neck exam: PRESENT: full ROM Respiratory exam: PRESENT: clear to auscultation chelo Cardiovascular exam: PRESENT: RRR Pulses: PRESENT: normal radial pulses Vascular exam: PRESENT: normal capillary refill GI/Abdominal exam: PRESENT: tenderness - on a non reducible bulge over a previous transverse upper abdominal incision Rectal exam: PRESENT: deferred Extremities exam: PRESENT: full ROM Musculoskeletal exam: PRESENT: ambulatory Neurological exam: PRESENT: alert, oriented to person, oriented to place, oriented to time, oriented to situation Psychiatric exam: PRESENT: appropriate affect Skin exam: PRESENT: normal color, warm Results Laboratory Results: 05/18/18 18:43 05/18/18 18:43 05/18/18 05/18/18 18:43 18:43 WBC Cancelled RBC Cancelled Hgb Cancelled Hct Cancelled MCV Cancelled MCH Cancelled MCHC Cancelled RDW Cancelled Plt Count Cancelled Seg Neutrophils % Cancelled Lymphocytes % Cancelled Monocytes % Cancelled Eosinophils % Cancelled Basophils % Cancelled Absolute Neutrophils Cancelled Absolute Lymphocytes Cancelled Absolute Monocytes Cancelled Absolute Eosinophils Cancelled Absolute Basophils Cancelled Sodium 134.3 L Potassium 4.1 Chloride 97 L Carbon Dioxide 29 Anion Gap 8 BUN 38 H Creatinine 8.58 H Est GFR ( Amer) 6 L Est GFR (Non-Af Amer) 5 L Glucose 155 H Calcium 8.2 L Total Bilirubin 0.3 AST 19 ALT 20 Alkaline Phosphatase 139 H Total Protein 6.1 L Albumin 2.9 L Lipase 193.6 Assessment & Plan - Diagnosis (1) Incarcerated incisional hernia following transplant Is this a current diagnosis for this admission?: Yes (2) Renal failure treated with peritoneal dialysis Is this a current diagnosis for this admission?: Yes - Time Time Spent: 30 to 50 Minutes - Inpatient Certification Medical Necessity: Need For IV Fluids, Need for Pain Control, Need for IV Antibiotics, Need for Surgery - Plan Summary Plan Summary: For emergency repair of incarcerated incisional hernia with possible use of mesh.
[2018-05-18] MEDS ORDERED: CEFAZOLIN INJ 1 GM VIAL IV ONE (19:52)
[2018-05-18] MEDS ORDERED: PROPOFOL INJ 200 MG/20 ML VIAL IV ONE (20:06)
[2018-05-18] MEDS ORDERED: DEXMEDETOMIDINE INJ 80 MCG/20 ML VIAL IV ONE (20:06)
[2018-05-18] MEDS ORDERED: EPHEDRINE SULFATE INJ 50 MG/1 ML AMPULE ONE (20:06)
[2018-05-18] MEDS ORDERED: MIDAZOLAM 2 MG/2 ML INJ ONE (20:06)
[2018-05-18] MEDS ORDERED: ACETAMINOPHEN 0 MG/0 ML RTUPB IV ONE (20:06)
[2018-05-18] MEDS ORDERED: FENTANYL CITRATE INJ/PF 250 MCG/5 ML AMPULE ONE (20:06)
[2018-05-18] MEDS ORDERED: CEFAZOLIN INJ 1 GM VIAL ONE (20:12)
[2018-05-18] MEDS ORDERED: BUPIVACAINE HCL 0.5%-EPI 1:200000 INJ/PF 30 ML VIAL ONE (20:13)
[2018-05-18] MEDS ORDERED: EPINEPHRINE INJ 1 MG/10 ML DISP.SYRIN ONE (20:40)
[2018-05-18] MEDS ORDERED: VASOPRESSIN INJ 20 UNIT/1 ML VIAL ONE (20:41)
[2018-05-18 21:04] LABS: ALANINE AMINOTRANSFERASE 21 U/L (9-52); ALBUMIN 2.9 g/dL (3.5-5.0); ALKALINE PHOSPHATASE 136 U/L (38-126); ANION GAP 7 (5-19); ASPARTATE AMINO TRANSFERASE 18 U/L (14-36); BILIRUBIN,DIRECT 0.3 mg/dL (0.0-0.4); BILIRUBIN,TOTAL 0.3 mg/dL (0.2-1.3); BLOOD UREA NITROGEN 37 mg/dL (7-20); CALCIUM 8.3 mg/dL (8.4-10.2); CARBON DIOXIDE 29 mmol/L (22-30); CHLORIDE 98 mmol/L (98-107); GLUCOSE 145 mg/dL (75-110); POTASSIUM 4.5 mmol/L (3.6-5.0); SODIUM 134.2 mmol/L (137-145); TOTAL PROTEIN 5.9 g/dL (6.3-8.2)
[2018-05-18] MEDS ORDERED: ONDANSETRON HCL INJ/PF 4 MG/2 ML SDV IV PRN ×2 (21:52→22:55)
[2018-05-18] MEDS ORDERED: DIPHENHYDRAMINE HCL 50 MG/ML VIAL IV PRN (21:52)
[2018-05-18] MEDS ORDERED: PROMETHAZINE HCL INJ 25 MG/1 ML VIAL IV PRN ×2 (21:52)
[2018-05-18] MEDS ORDERED: FENTANYL CITRATE INJ/PF 100 MCG/2 ML AMPUL IV PRN ×3 (21:52)
[2018-05-18] MEDS ORDERED: OXYCODONE-ACETAMINOPHEN 5-325 MG TABLET PO PRN (22:56)
[2018-05-18] MEDS ORDERED: NORMAL SALINE 1000 ML 1,000 ML IV PRN (22:58)
[2018-05-19 04:23] LABS: ANION GAP 8 (5-19); BLOOD UREA NITROGEN 40 mg/dL (7-20); CARBON DIOXIDE 26 mmol/L (22-30); CHLORIDE 101 mmol/L (98-107); GLUCOSE 164 mg/dL (75-110); POTASSIUM 4.5 mmol/L (3.6-5.0); SODIUM 135.1 mmol/L (137-145)
--- NOTE | 2018-05-19 04:52 | OPERATIVE REPORT E ---
Operative Report NAME: IRIS VENCES : 1950 AGE: 67Y DATE OF SURGERY: 05/18/2018 ROOM: 303 PREOPERATIVE DIAGNOSIS: INCARCERATED INCISIONAL HERNIA. OPERATION: REPAIR OF INCISIONAL HERNIA, DIRECT REPAIR. SURGEON: MAYRA RILEY M.D. ANESTHESIA: GENERAL. INDICATION: This is a 67-year-old female who had a previous heart transplant 18 years ago. She is known to have an incisional hernia that she was able to reduce in the past. However, today she coughed and the hernia noted to be very tender and had some vomiting episodes. Went to ED and noted to have incarcerated incisional hernia right of the previous transplant surgery site, or at least one of the incisions for the heart transplant surgery site. This was not able to be reduced in the ED. The patient also on peritoneal dialysis treatments. The hernia site is right at the right upper quadrant transverse incision and the PD catheter was in the right lower quadrant. The patient was then taken to the OR for repair of the incarcerated incisional hernia. DESCRIPTION OF PROCEDURE: After adequate general anesthesia, the abdomen was then prepped and draped in the usual sterile fashion. Appropriate time-out was called. Next, local anesthesia infiltrated along the incision site and a transverse incision made. A transverse incision over the scar and over the hernia was made. The hernia sac was then dissected down to the fascia. The fascia was incipiently enlarged with cautery to at least 5 mm laterally and 5 mm medially. The sac was then opened and the bowel appears to be intact, without any evidence of significant discoloration. This was noted to be viable. The hernia was then pushed down into the abdominal cavity and the fascia subsequently closed with a running suture using 0 Prolene starting at both ends and tied in the middle. The defect roughly measured about 3 cm transversely x 1-1/2 cm vertically. Adequate hemostasis was noted. The subcutaneous was partially closed with running suture using 3-0 Vicryl and the skin incision closed with melia. A sterile dressing was placed over the operative sites. Needle, instrument, and sponge counts were all correct. Estimated blood loss was minimal. DICTATING PHYSICIAN: MAYRA RILEY M.D. [id number] Y#: [id number] ID: [id number] JOB#: [id number] ACCT: [id number] cc:MAYRA RILEY M.D. > SG
[2018-05-19 05:09] LABS: HEMATOCRIT 28.7 % (36.0-47.0); HEMOGLOBIN 9.5 g/dL (12.0-15.5); MEAN CORPUSCULAR HEMOGLOBIN 31.1 pg (27.0-33.4); MEAN CORPUSCULAR HGB CONC 33.2 g/dL (32.0-36.0); MEAN CORPUSCULAR VOLUME 94 fl (80-97); RED BLOOD COUNT 3.07 10^6/uL (3.72-5.28); RED CELL DISTRIBUTION WIDTH 15.4 % (11.5-14.0); WHITE BLOOD COUNT 7.1 10^3/uL (4.0-10.5)
[2018-05-19 05:13] LABS: ABSOLUTE LYMPHOCYTES# (MANUAL) 0.9 10^3/uL (0.5-4.7); ABSOLUTE NEUTROPHILS# (MANUAL) 6.2 10^3/uL (1.7-8.2); BASOPHILS % (MANUAL) 1 % (0-2); EOSINOPHILS % (MANUAL) 0 % (0-6); LYMPHOCYTES % (MANUAL) 12 % (13-45); MONOCYTES % (MANUAL) 0 % (3-13); SEGMENTED NEUTROPHILS % (MAN) 87 % (42-78); TOTAL CELLS COUNTED 100
[2018-05-19 05:18] LABS: ANISOCYTOSIS SLIGHT; OVALOCYTES SLIGHT; POIKILOCYTOSIS SLIGHT; SCHISTOCYTES SLIGHT; TOXIC GRANULATION SLIGHT
[2018-05-19 05:22] LABS: PLATELET COUNT 190 10^3/uL (150-450)
[2018-05-19 05:23] LABS: PLATELET COMMENT DECREASED
--- NOTE | 2018-05-19 08:58 | EKG REPORT ---
SEVERITY:- ABNORMAL ECG - SINUS RHYTHM NONSPECIFIC T ABNORMALITIES, DIFFUSE LEADS : Confirmed by: Suzanna Keen MD 19-May-2018 08:58:02
[2018-05-19 12:00] VITALS: BP 129/69
== END 2018-05-19 18:43 | disposition home or self-care (01) | DRG 354 ==
LOC: ER 15:08 → EH 19:26 → 3N 23:08
PROVIDERS: ATTEND Surgery
PROC: 0WQF0ZZ Repair Abdominal Wall, Open Approach (ICD-10-PCS; principal; 2018-05-18 20:45)
DX: K43.0 Incisional hernia with obstruction, without gangrene (principal); Z94.1 Heart transplant status; I69.354 Hemiplegia and hemiparesis following cerebral infarction affecting left non-dominant side; N19 Unspecified kidney failure; I25.10 Atherosclerotic heart disease of native coronary artery without angina pectoris; Z99.2 Dependence on renal dialysis; K44.9 Diaphragmatic hernia without obstruction or gangrene; M19.90 Unspecified osteoarthritis, unspecified site; D64.9 Anemia, unspecified
CPT/HCPCS: 36415; 790; 80048; 80053; 83690; 85025; 87040; 88302; 90945; 93005; 93010; 99284; J0131; J0171; J0330; J0690; J1100; J2250; J2405; J2704; J3010; J3490; J7030

== ENCOUNTER → 2018-05-22 | Outpatient (CLI) | payer MEDICARE, MEDICAID | LOC: OD 16:16 | PROVIDERS: ATTEND Internal Medicine Nephrology | DX: E87.5 Hyperkalemia (principal) | CPT/HCPCS: 36415; 84132 ==

== ENCOUNTER 2018-08-08 17:14 | Emergency (ER) | payer MEDICARE, MEDICAID ==
--- NOTE | 2018-08-08 17:40 | ER Document Report ---
ED Medical Screen (RME) - General Chief Complaint: Leg Pain Stated Complaint: LEG PAIN Time Seen by Provider: 08/08/18 17:33 Primary Care Provider: Aleks VAZQUEZ MD [Primary Care Provider] - Follow up as needed TRAVEL OUTSIDE OF THE [place] IN LAST 30 DAYS: No - HPI Notes: 08/08/18 17:37 Patient is a 68-year-old female with a history of heart transplant and dialysis (peritoneal at home nightly) who presents per the direction of her family doctor for right greater than left lower leg swelling, tenderness, redness primarily to the calf over the past couple days. Patient states that she usually has swelling in her legs bilaterally, but the right leg is more than usual. Her family doctor is questioning DVT versus cellulitis. No other concerns or complaints. Denies JUAREZ, fever, neck pain, URI, CP, SOB, syncope, dyspnea on exertion, abd pain. I have treated and performed a rapid initial assessment of this patient. A comprehensive ED assessment and evaluation of the patient, analysis of test results and completion of medical decision making process will be conducted by additional ED providers. PHYSICAL EXAMINATION: GENERAL: Well-appearing, well-nourished and in no acute distress. A&Ox4. Answers questions appropriately. LUNGS: Breath sounds clear to auscultation bilaterally and equal. No wheezes rales or rhonchi. HEART: Regular rate and rhythm without murmurs, rubs, gallops. Extremities: Rt LE: 2+ pitting with mild erythema to the calf and associated tenderness. Lt LE: 1+ pitting edema, non-tender. N/V intact distal with 2+ pulses. NEUROLOGICAL: Normal speech, normal gait. PSYCH: Normal mood, normal affect. 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 Denies: Hx Seizures Renal/ Medical History: Denies: Hx Peritoneal Dialysis GI Medical History: Reports: Hx Hiatal Hernia. Denies: Hx Hepatitis, Hx Ulcer Musculoskeltal Medical History: Reports Hx Arthritis - "all over" Infectious Medical History: Denies: Hx Hepatitis Past Surgical History: Reports: Hx Open Heart Surgery - HEART TRANSPLANT, CABG X2, Hx Orthopedic Surgery - left knee, Other - heart transplant 18 years ago. PD catheter for Dialysis 8 months ago. Denies: Hx Mastectomy, Hx Pacemaker - Immunizations Hx Diphtheria, Pertussis, Tetanus Vaccination: Yes Physical Exam - Vital signs Vitals: Temp Pulse Resp BP Pulse Ox 97.9 F 100 16 146/84 H 99 08/08/18 17:18 08/08/18 17:18 08/08/18 17:18 08/08/18 17:18 08/08/18 17:18 Course - Vital Signs Vital signs: Temp Pulse Resp BP Pulse Ox 97.9 F 100 16 146/84 H 99 08/08/18 17:18 08/08/18 17:18 08/08/18 17:18 08/08/18 17:18 08/08/18 17:18 Doctor's Discharge - Discharge Referrals: Aleks VAZQUEZ MD [Primary Care Provider] - Follow up as needed
[2018-08-08 19:13] LABS: INTERNATIONAL RATION (INR) 0.87; PROTHROMBIN TIME 12.3 SEC (11.4-15.4)
[2018-08-08 19:14] LABS: PARTIAL THROMBOPLASTIN TIME 24.1 SEC (23.5-35.8)
[2018-08-08 19:46] LABS: ALANINE AMINOTRANSFERASE 19 U/L (9-52); ALKALINE PHOSPHATASE 118 U/L (38-126); ANION GAP 9 (5-19); ASPARTATE AMINO TRANSFERASE 17 U/L (14-36); BILIRUBIN,DIRECT 0.3 mg/dL (0.0-0.4); BILIRUBIN,TOTAL 0.3 mg/dL (0.2-1.3); BLOOD UREA NITROGEN 41 mg/dL (7-20); CALCIUM 9.3 mg/dL (8.4-10.2); CARBON DIOXIDE 27 mmol/L (22-30); CHLORIDE 100 mmol/L (98-107); GLUCOSE 113 mg/dL (75-110); POTASSIUM 5.4 mmol/L (3.6-5.0); SODIUM 135.5 mmol/L (137-145); TOTAL PROTEIN 6.4 g/dL (6.3-8.2)
[2018-08-08 20:50] LABS: ABSOLUTE BASOPHILS # (AUTO) 0.1 10^3/uL (0.0-0.2); ABSOLUTE EOSINOPHILS # (AUTO) 0.1 10^3/uL (0.0-0.6); ABSOLUTE LYMPHOCYTES (AUTO) 2.5 10^3/uL (0.5-4.7); ABSOLUTE MONOCYTES (AUTO) 0.9 10^3/uL (0.1-1.4); ABSOLUTE NEUT (AUTO) 4.1 10^3/uL (1.7-8.2); BASOPHILS % (AUTO) 0.8 % (0-2); EOSINOPHILS % (AUTO) 1.2 % (0-6); HEMATOCRIT 34.1 % (36.0-47.0); HEMOGLOBIN 11.4 g/dL (12.0-15.5); LYMPHOCYTES % (AUTO) 32.7 % (13-45); MEAN CORPUSCULAR HEMOGLOBIN 30.5 pg (27.0-33.4); MEAN CORPUSCULAR HGB CONC 33.5 g/dL (32.0-36.0); MEAN CORPUSCULAR VOLUME 91 fl (80-97); MONOCYTES % (AUTO) 11.5 % (3-13); PLATELET COUNT 229 10^3/uL (150-450); RED BLOOD COUNT 3.75 10^6/uL (3.72-5.28); RED CELL DISTRIBUTION WIDTH 15.4 % (11.5-14.0); SEGMENTED NEUTROPHILS % (AUTO) 53.8 % (42-78); TOTAL CELLS COUNTED % (AUTO) 100 %; WHITE BLOOD COUNT 7.5 10^3/uL (4.0-10.5)
[2018-08-09] MEDS ORDERED: CEPHALEXIN 500 MG CAPSULE PO ONE (01:17)
--- NOTE | 2018-08-09 01:17 | ER Document Report ---
ED General - General Chief Complaint: Leg Pain Stated Complaint: LEG PAIN Time Seen by Provider: 08/08/18 17:33 Primary Care Provider: Aleks VAZQUEZ MD [Primary Care Provider] - Follow up in 3-5 days Notes: She is a pleasant 68-year-old female has a history of end-stage renal disease and chronic edema in her lower extremities. She sent in by her physician because she has had some worsening edema. Patient says edema comes and goes. She says that in the past when he was got really bad she is got no redness on her legs like she does have nail. This time is a little worse than it has been as of recently. She denies any fevers. No vomiting. She says when the redness got this bad before she was placed on antibiotic which did seem to help. She does have compression hose but does not always wear them. She says since being in the ER she had her legs up on pillows in the bed and that seems to have hel ped the edema as well. She denies any chest pain or difficulty breathing. No other complaints at this time. TRAVEL OUTSIDE OF THE [place] IN LAST 30 DAYS: No - Related Data Allergies/Adverse Reactions: adhesive tape Allergy (Severe, Verified 08/08/18 17:14) rash meperidine HCl [From Demerol] Allergy (Severe, Verified 08/08/18 17:14) Nausea Past Medical History - Social History Smoking Status: Former Smoker Frequency of alcohol use: None Drug Abuse: None Family History: Reviewed & Not Pertinent Patient has suicidal ideation: No Patient has homicidal ideation: No - Past Medical History Cardiac Medical History: Reports: Hx Coronary Artery Disease, Hx Hypertension Denies: Hx Heart Attack Pulmonary Medical History: Denies: Hx Asthma, Hx Bronchitis, Hx COPD, Hx Pneumonia Neurological Medical History: Reports: Hx Cerebrovascular Accident - 1996 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 Denies: Hx Seizures Renal/ Medical History: Denies: Hx Peritoneal Dialysis GI Medical History: Reports: Hx Hiatal Hernia. Denies: Hx Hepatitis, Hx Ulcer Musculoskeletal Medical History: Reports Hx Arthritis - "all over" Infectious Medical History: Denies: Hx Hepatitis Past Surgical History: Reports: Hx Open Heart Surgery - HEART TRANSPLANT, CABG X2, Hx Orthopedic Surgery - left knee, Other - heart transplant 18 years ago. PD catheter for Dialysis 8 months ago. Denies: Hx Mastectomy, Hx Pacemaker - Immunizations Hx Diphtheria, Pertussis, Tetanus Vaccination: Yes Hx Pneumococcal Vaccination: 02/02/11 Review of Systems - Review of Systems Notes: My Normal Review Basic REVIEW OF SYSTEMS: CONSTITUTIONAL : Denies fever, chills, or sweats. Denies recent illness. CARDIOVASCULAR: Denies chest pain. RESPIRATORY: Denies cough, cold, or chest congestion. Denies shortness of breath, difficulty breathing, or wheezing. GASTROINTESTINAL: Denies abdominal pain. Denies nausea, vomiting, or diarrhea. MUSCULOSKELETAL: Some edema in bilateral lower extremities. SKIN: Some redness to the skin of lower extremities. NEUROLOGICAL: Denies sensory or motor loss. ALL OTHER SYSTEMS REVIEWED AND NEGATIVE. Physical Exam - Vital signs Vitals: Temp Pulse Resp BP Pulse Ox 97.9 F 100 16 146/84 H 99 08/08/18 17:18 08/08/18 17:18 08/08/18 17:18 08/08/18 17:18 08/08/18 17:18 - Notes Notes: General Appearance: Well nourished, alert, cooperative, no acute distress, no obvious discomfort. Appearing. Vitals: reviewed, See vital signs table. Eyes: PERRL, EOMI, Conjuctiva clear Mouth: No decreasd moisture Lungs: No wheezing, No rales, No rhonci, No accessory muscle use, good air exchange bilaterally. Heart: Normal rate, Regular rythm, No murmur, no rub Abdomen: Normal BS, soft, No rigidity, No abdominal tenderness, No guarding, no rebound, no abdominal masses, no organomegaly Extremities: Patient has 2+ edema in bilateral lower extremities is equal bilaterally. She has some faint redness to both lower extremities consistent with chronic edema. Some slight increase in warmth. 2+ dorsalis pedis pulses bilaterally. 1+ posterior tibial pulses bilaterally.. Skin: warm, dry, appropriate color, redness to lower extremities Neuro: speech clear, oriented x 3, normal affect, responds appropriately to questions. Course - Re-evaluation Re-evalutation: 08/09/18 07:02 Patient's exam is consistent with chronic edema of the lower extremities leading to the erythema that she is having. She does not have a fever or leukocytosis. I think a true cellulitis is unlikely however the patient says last time her legs got like this in antibiotic did help her. For place her on Keflex. I informed her that this will help the most will be keeping her legs elevated and also to wear her compression hose every day. Patient says she will try to do this. Patient's will be discharged home. She is encouraged to return to ER if she has worsening swelling, spreading redness of the legs, difficulty breathing, fevers, or if she feels unwell. Patient agrees with plan and will be discharged home. Dictation of this chart was performed using voice recognition software; th erefore, there may be some unintended grammatical errors. - Vital Signs Vital signs: Temp Pulse Resp BP Pulse Ox 98.2 F 91 18 143/80 H 99 08/09/18 01:50 08/09/18 01:50 08/09/18 01:50 08/09/18 01:50 08/09/18 01:50 - Laboratory Result Diagrams: 08/08/18 20:38 08/08/18 18:43 Laboratory results interpreted by me: 08/08/18 08/08/18 08/08/18 18:43 18:43 20:38 Hgb 11.4 L Hct 34.1 L RDW 15.4 H Sodium 135.5 L Potassium 5.4 H BUN 41 H Creatinine 11.57 H Est GFR ( Amer) 4 L Est GFR (Non-Af Amer) 3 L Glucose 113 H C-React Prot High Sens 12.7145 H Albumin 3.0 L Discharge - Discharge Clinical Impression: Leg edema Condition: Good Disposition: HOME, SELF-CARE Additional Instructions: I suspect that the redness of your legs is related to the chronic swelling in your legs. I think infection is less likely; however, You mentioned an antibiotic has helped you in the past when your legs become this red and therefore we will place you on an antibiotic to see if this helps improve your symptoms. Ultimately I think your symptoms will improve if you keep your legs elevated when in bed and also if you wear compression stockings to help reduce the amount of the swelling in your lower extremities. Please follow-up with your doctor in the next couple days for reevaluation. On days you have dialysis please wait untill after dialysis is over before taking your antibiotic. Return to the ER immediately if you have increasing swelling, spreading redness in your legs, or if you feel unwell. Prescriptions: Cephalexin Monohydrate [Keflex 500 mg Capsule] 500 mg PO DAILY #7 capsule Referrals: Aleks VAZQUEZ MD [Primary Care Provider] - Follow up in 3-5 days
[2018-08-09 01:58] VITALS: BP 143/80
--- NOTE | 2018-08-09 08:16 | RADIOLOGY REPORT (SQ) ---
EXAM DESCRIPTION: VENOUS UNILATERAL LOWER COMPLETED DATE/TIME: 08/08/2018 8:18 pm REASON FOR STUDY: Rt LE pain, swelling, redness (calf) COMPARISON: None. TECHNIQUE: Dynamic and static lin scale and color images acquired of the right leg venous system. S elected spectral images acquired with additional compression and augmentation maneuvers. The contrala teral common femoral vein and saphenofemoral junction were also imaged. Images stored on PACS. LIMITATIONS: None. FINDINGS: RIGHT COMMON FEMORAL: Normal phasicity, compression and augmentation. No visualized echogenic material on g ray scale. No defects on color images. FEMORAL: Normal compression and augmentation. No visualized echogenic material on lin scale. No defe cts on color images. POPLITEAL: Normal compression, augmentation. No visualized echogenic material on lin scale. No defec ts on color images. CALF VESSELS: Normal compression, augmentation. No visualized echogenic material on lin scale. No de fects on color images. GSV and SSV: Normal compression, augmentation. No visualized echogenic material on lin scale. No def ects on color images. ANY DEEP VENOUS INSUFFICIENCY: Not evaluated. ANY EVIDENCE OF POPLITEAL CYST: No. OTHER: No other significant finding. LEFT COMMON FEMORAL VEIN AND SAPHENOFEMORAL JUNCTION: Normal phasicity, compression and augmentation. No visualized echogenic material on lin scale. No de fects on color images. IMPRESSION: NO EVIDENCE OF DVT OR SVT IN THE LEFT LEG. TECHNICAL DOCUMENTATION: JOB ID: [id number] [employer]- All Rights Reserved Reading location - IP/workstation name: [email or web address]
== END 2018-08-09 02:00 | disposition home or self-care (01) ==
LOC: ER 17:14
DX: R60.9 Edema, unspecified (principal); I12.0 Hypertensive chronic kidney disease with stage 5 chronic kidney disease or end stage renal disease; N18.6 End stage renal disease; Z99.2 Dependence on renal dialysis; I25.10 Atherosclerotic heart disease of native coronary artery without angina pectoris; Z86.73 Personal history of transient ischemic attack (TIA), and cerebral infarction without residual deficits; Z94.1 Heart transplant status
CPT/HCPCS: 99284; 36415; 85025; 85610; 85730; 80053; 86141; 93971; A9270

== ENCOUNTER → 2018-09-10 | Outpatient (CLI) | payer MEDICARE, MEDICAID ==
[2018-09-10 10:30] LABS: ALANINE AMINOTRANSFERASE 12 U/L (9-52); ALBUMIN 3.1 g/dL (3.5-5.0); ALKALINE PHOSPHATASE 121 U/L (38-126); ANION GAP 13 (5-19); ASPARTATE AMINO TRANSFERASE 22 U/L (14-36); BILIRUBIN,DIRECT 0.4 mg/dL (0.0-0.4); BILIRUBIN,TOTAL 0.4 mg/dL (0.2-1.3); BLOOD UREA NITROGEN 39 mg/dL (7-20); CALCIUM 8.6 mg/dL (8.4-10.2); CARBON DIOXIDE 30 mmol/L (22-30); CHLORIDE 94 mmol/L (98-107); CHOLESTEROL 173.64 mg/dL (0-200); GLUCOSE 176 mg/dL (75-110); POTASSIUM 4.6 mmol/L (3.6-5.0); SODIUM 136.8 mmol/L (137-145); TOTAL PROTEIN 6.5 g/dL (6.3-8.2); TRIGLYCERIDES 262 mg/dL (<150)
[2018-09-10 10:41] LABS: DIRECT LDL 66 mg/dL (<100)
[2018-09-10 10:48] LABS: VLDL CHOLESTEROL 52.4 mg/dL (10-31)
[2018-09-10 11:25] LABS: FREE T3 2.97 pg/mL (2.77-5.27)
[2018-09-10 11:39] LABS: THYROID STIMULATING HORMONE 4.2 uIU/mL (0.47-4.68)
[2018-09-10 11:48] LABS: CREATINE KINASE 149 U/L (30-135)
[2018-09-10 11:50] LABS: ANION GAP 13 (5-19); BLOOD UREA NITROGEN 39 mg/dL (7-20); CALCIUM 8.6 mg/dL (8.4-10.2); CARBON DIOXIDE 30 mmol/L (22-30); CHLORIDE 94 mmol/L (98-107); GLUCOSE 176 mg/dL (75-110); POTASSIUM 4.6 mmol/L (3.6-5.0); SODIUM 136.8 mmol/L (137-145)
[2018-09-10 13:45] LABS: FREE T4 (FREE THYROXINE) 1.52 ng/dL (0.78-2.19)
[2018-09-12 10:57] LABS: ABSOLUTE BASOPHILS # (AUTO) 0.1 10^3/uL (0.0-0.2); ABSOLUTE EOSINOPHILS # (AUTO) 0.1 10^3/uL (0.0-0.6); ABSOLUTE LYMPHOCYTES (AUTO) 2.3 10^3/uL (0.5-4.7); ABSOLUTE MONOCYTES (AUTO) 0.9 10^3/uL (0.1-1.4); ABSOLUTE NEUT (AUTO) 4.8 10^3/uL (1.7-8.2); BASOPHILS % (AUTO) 0.9 % (0-2); EOSINOPHILS % (AUTO) 1.5 % (0-6); HEMATOCRIT 28.8 % (36.0-47.0); HEMOGLOBIN 9.6 g/dL (12.0-15.5); LYMPHOCYTES % (AUTO) 27.5 % (13-45); MEAN CORPUSCULAR HEMOGLOBIN 29.9 pg (27.0-33.4); MEAN CORPUSCULAR HGB CONC 33.3 g/dL (32.0-36.0); MEAN CORPUSCULAR VOLUME 90 fl (80-97); MONOCYTES % (AUTO) 11.2 % (3-13); RED CELL DISTRIBUTION WIDTH 15.7 % (11.5-14.0); SEGMENTED NEUTROPHILS % (AUTO) 58.9 % (42-78); TOTAL CELLS COUNTED % (AUTO) 100 %; WHITE BLOOD COUNT 8.2 10^3/uL (4.0-10.5)
[2018-09-12 11:35] LABS: PLATELET COUNT 211 10^3/uL (150-450)
[2018-09-13 11:16] LABS: SIROLIMUS (RAPAMUNE) 7.3 ng/mL (3.0-20.0); TACROLIMUS (FK506) 4.6 ng/mL (2.0-20.0)
== END ==
LOC: OD 08:40
PROVIDERS: ATTEND Nurse Practitioner Adult Health
DX: E11.9 Type 2 diabetes mellitus without complications (principal); I10 Essential (primary) hypertension; E78.5 Hyperlipidemia, unspecified; E03.9 Hypothyroidism, unspecified; Z94.1 Heart transplant status; Z79.899 Other long term (current) drug therapy
CPT/HCPCS: 36415; 80048; 80053; 80061; 80195; 80197; 82550; 83036; 83735; 84439; 84443; 84481; 85025

== ENCOUNTER → 2018-10-01 | Outpatient (CLI) | payer MEDICARE, MEDICAID ==
[2018-10-01 10:49] LABS: HEMATOCRIT 27.7 % (36.0-47.0); HEMOGLOBIN 9.2 g/dL (12.0-15.5); MEAN CORPUSCULAR HEMOGLOBIN 30.6 pg (27.0-33.4); MEAN CORPUSCULAR VOLUME 93 fl (80-97); RED CELL DISTRIBUTION WIDTH 16.4 % (11.5-14.0); WHITE BLOOD COUNT 8.8 10^3/uL (4.0-10.5)
[2018-10-01 11:18] LABS: PLATELET COUNT 202 10^3/uL (150-450)
[2018-10-01 11:21] LABS: ABSOLUTE LYMPHOCYTES# (MANUAL) 2.6 10^3/uL (0.5-4.7); ABSOLUTE MONOCYTES # (MANUAL) 0.9 10^3/uL (0.1-1.4); ABSOLUTE NEUTROPHILS# (MANUAL) 5.2 10^3/uL (1.7-8.2); ALANINE AMINOTRANSFERASE 14 U/L (9-52); ALBUMIN 2.7 g/dL (3.5-5.0); ALKALINE PHOSPHATASE 109 U/L (38-126); ANION GAP 11 (5-19); ASPARTATE AMINO TRANSFERASE 23 U/L (14-36); BASOPHILS % (MANUAL) 0 % (0-2); BILIRUBIN,DIRECT 0.3 mg/dL (0.0-0.4); BILIRUBIN,TOTAL 0.4 mg/dL (0.2-1.3); BLOOD UREA NITROGEN 29 mg/dL (7-20); CALCIUM 8.4 mg/dL (8.4-10.2); CARBON DIOXIDE 29 mmol/L (22-30); CHLORIDE 97 mmol/L (98-107); EOSINOPHILS % (MANUAL) 2 % (0-6); GLUCOSE 142 mg/dL (75-110); LYMPHOCYTES % (MANUAL) 29 % (13-45); MONOCYTES % (MANUAL) 10 % (3-13); POTASSIUM 4.9 mmol/L (3.6-5.0); SEGMENTED NEUTROPHILS % (MAN) 59 % (42-78); SODIUM 136.5 mmol/L (137-145); TOTAL CELLS COUNTED 100; TOTAL PROTEIN 5.9 g/dL (6.3-8.2)
[2018-10-01 11:28] LABS: ANISOCYTOSIS 1+; OVALOCYTES SLIGHT; PLATELET CLUMPS PRESENT; POIKILOCYTOSIS SLIGHT; TEAR DROP CELLS SLIGHT
[2018-10-02 07:03] LABS: HEPATITS B SURFACE ANTIGEN Negative (Negative)
== END ==
LOC: DAVITANR 10:04
PROVIDERS: ATTEND Internal Medicine Nephrology
DX: N18.6 End stage renal disease (principal); D64.9 Anemia, unspecified; Z11.59 Encounter for screening for other viral diseases
CPT/HCPCS: 80053; 83540; 83550; 83735; 84100; 85025; 87340

== ENCOUNTER 2018-10-26 09:52 | Outpatient (CLI) | payer MEDICARE, MEDICAID ==
[~2018-10-26 09:52] MED LIST changes: -DEXAMETHASONE SOD PHOSPHATE INJ 4 MG/1 ML VIAL ONE; +IRON SUCROSE COMPLEX 200 MG in NORMAL SALINE 100 ML IV PRN; -LIDOCAINE 2% INJ-PF (20 MG/ML) 2 ML AMPUL ONE; -ONDANSETRON HCL INJ/PF 4 MG/2 ML SDV ONE; -SUCCINYLCHOLINE CHLORIDE INJ 200 MG/10 ML VIAL ONE
[2018-10-26 10:51] VITALS: BP 134/62
== END 2018-10-26 11:44 | disposition home or self-care (01) ==
LOC: II 09:52 → 5TH 09:54 → II 11:44
PROVIDERS: ATTEND Internal Medicine Nephrology
PROC: 3E033GC Introduction of Other Therapeutic Substance into Peripheral Vein, Percutaneous Approach (ICD-10-PCS; principal; 2018-10-26)
DX: N18.9 Chronic kidney disease, unspecified (principal); D63.1 Anemia in chronic kidney disease
CPT/HCPCS: 96374; J1756; J7050; 96365

== ENCOUNTER → 2019-01-25 | Outpatient (CLI) | payer MEDICARE, MEDICAID | LOC: OD 10:30 | PROVIDERS: ATTEND Internal Medicine Nephrology | DX: Z51.81 Encounter for therapeutic drug level monitoring (principal); Z94.1 Heart transplant status; Z79.899 Other long term (current) drug therapy; Z48.298 Encounter for aftercare following other organ transplant; R79.89 Other specified abnormal findings of blood chemistry | CPT/HCPCS: 36415; 80195; 80197 ==

== ENCOUNTER 2019-03-20 10:08 | Emergency (ER) | payer MEDICARE, MEDICAID ==
[2019-03-20 10:36] LABS: INTERNATIONAL RATION (INR) 0.88; PARTIAL THROMBOPLASTIN TIME 24.7 SEC (23.5-35.8)
[2019-03-20 10:39] LABS: PROTHROMBIN TIME 11.9 SEC (11.4-15.4)
--- NOTE | 2019-03-20 10:56 | ER Document Report ---
Entered by GUERA ROCHA SCRIBE 03/20/19 1015 Acting as scribe for:AGUSTO MCNEAL MD ED Neuro Symptoms/Deficit - General Chief Complaint: Weakness Stated Complaint: POSSIBLE STROKE Time Seen by Provider: 03/20/19 10:13 Primary Care Provider: Aleks VAZQUEZ MD [ACTIVE STAFF] - 03/25/19 Information source: Patient, Emergency Med Personnel, [facility] Records Notes: This 68-year-old female patient comes emergency room by EMS this morning when she had the onset of feeling a limp all over. She reports she has had a real bad headache off and on for the past week, it was worse this morning and located on the left part of her forehead and temporal head. She reports the headache is a aching type headache, it is not throbbing or pulsating. She states she is making the bed when she felt limp all over involving all extremities. Her weakness sensation is better now but states she still feels a little weak all over. She is using all extremities without problems. She has normal strength in all extremities. She is a heart transplant patient. She states she is not on any blood thinners. Patient is not a TPA candidate based on her presentation. She was put on Levaquin 7 days ago for redness around her perineal dialysis catheter site. The patient used to be on Midrin for low blood pressure, her blood pressures have been running high recently, so the Midrin was stopped 2 weeks ago. Her blood pressure when triaged today is 181/82. TRAVEL OUTSIDE OF THE [place] IN LAST 30 DAYS: No - Related Data Allergies/Adverse Reactions: adhesive tape Allergy (Severe, Verified 08/08/18 17:14) rash meperidine HCl [From Demerol] Allergy (Severe, Verified 08/08/18 17:14) Nausea Past Medical History - General Information source: Patient, [facility] Records - Social History Smoking Status: Unknown if Ever Smoked Family History: Reviewed & Not Pertinent - Past Medical History Cardiac Medical History: Reports: Hx Coronary Artery Disease - prior to heart transplant, Hx Hypercholesterolemia, Hx Hypertension Pulmonary Medical History: Neurological Medical History: Reports: 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 PD catheter for Dialysis 8 months ago - Immunizations Hx Diphtheria, Pertussis, Tetanus Vaccination: Yes Hx Pneumococcal Vaccination: 02/02/11 Review of Systems - Review of Systems Constitutional: See HPI, Weakness - global EENT: No symptoms reported Cardiovascular: No symptoms reported Respiratory: No symptoms reported Gastrointestinal: No symptoms reported Genitourinary: No symptoms reported Female Genitourinary: No symptoms reported Musculoskeletal: No symptoms reported Skin: No symptoms reported Hematologic/Lymphatic: No symptoms reported Neurological/Psychological: See HPI, Headaches -: Yes All other systems reviewed and negative Physical Exam - Notes Notes: Physical Exam: General: Alert, appears well. HEENT: Normocephalic. Atraumatic. PERRL. Extraocular movements intact. Oropharynx clear. Left temporal artery region shows tenderness with palpation. Neck: Supple. Non-tender. Respiratory: No respiratory distress. Clear and equal breath sounds bilaterally. Cardiovascular: Regular rate and rhythm. Abdominal: PD catheter in place. Non-tender. No distension. Normal Bowel Sounds. Back: No gross abnormalities. Extremities: Moves all four extremities. Upper extremities: Normal inspection. Normal ROM. Lower extremities: Normal inspection. No edema. Normal ROM. Neurological: Normal cognition. AAOx4. Normal speech. No motor deficits. Psychological: Normal affect. Normal Mood. Skin: Warm. Dry. Normal color. Course - Re-evaluation Re-evalutation: 03/20/19 13:41 Reevaluation, but the patient states that her headache is a little bit better b ut she still has the aching in the left temporal region. Repeat examination shows her to be tender in the region of the temporal artery only. She states that the pain is a constant dull aching, with no throbbing and no pulsation. She tells me she makes very little urine so the normal saline bolus was stopped after about 100 mL's of saline. She was given only 12-1/2 mg of Benadryl and 5 mg Compazine. I usually use twice that much. I will give her an additional 5 mg of Compazine and then reevaluate her headache. 03/20/19 15:12 The patient's headache had improved some more after the second dose of Compazine, her blood pressure was remaining elevated in the 180 systolic range. She was given Lopressor 2.5 mg IV, and reevaluated over an hour later and her pressure is down to 160/87 with pulse of 80. She is going to be discharged on Toprol-XL 100 mg once daily on the advice of Dr. Jeferson Vazquez, is to check her blood pressures and call the peritoneal dialysis nurse with any concerning results either very high or very low. She is also to stop the Lopressor if her blood pressure drops below 130-140 systolic range. Due to her blood pressure usually being too low, and now too high, I will use metoprolol 50 mg twice daily rather than the longer acting Toprol-XL, in case her blood pressure drops too low. 03/20/19 15:32 The patient's ESR was 77, CRP was undetectable. She is a peritoneal dialysis patient, so the CRP is 77 is not unexpected. The undetectable CRP does exclude temporal arteritis as an etiology for her temporal headache. - Laboratory Result Diagrams: 03/20/19 12:02 03/20/19 10:20 - Diagnostic Test Radiology reviewed: Image reviewed, Reports reviewed - CT scan of the head does not show acute intracranial abnormalities. Discharge - Discharge Clinical Impression: Tension type headache Qualifiers: Headache chronicity pattern: acute headache Intractability: not intractable Qualified Code(s): G44.209 - Tension-type headache, unspecified, not intractable High blood pressure Qualifiers: Hypertension type: unspecified Qualified Code(s): I10 - Essential (primary) hypertension Condition: Stable Disposition: HOME, SELF-CARE Additional Instructions: Tension Headache Your problem has been diagnosed as muscle tension headache. This very common type of headache occurs because of tightness in the muscles of the head and neck. The cause may be neck or jaw joint problems, but most commonly the cause is emotional stress. The headache may last hours or days. The treatment of uncomplicated tension headaches is rest and pain medication. Often, the newer antiinflammatory pain medications are prescribed, as these also decrease the irritability of the painful tissues. Muscle relaxers, cold packs, or warm packs are sometimes helpful. Anti-anxiety medication or narcotics are sometimes needed temporarily, but are best avoided in the long run. Your doctor has evaluated your headache problem, and finds no evidence of a serious health problem as a cause for the headache. If your headache becomes more severe, or if new symptoms develop (such as fever, stiff neck, vomiting, or decreasing alertness) you should be re-examined by the physician. Take medication as prescribed for your headache. Take the metoprolol 50 mg once every 12 hours for your elevated blood pressure. Check your blood pressure a few times daily for the first few days. If your pressure remains elevated above 1 50-1 60 systolic range, call the peritoneal dialysis nurse. If your pressure drops below 130 systolic range, then stop the Lopressor until your pressure has come back up, and call the peritoneal dialysis nurse. Follow-up with Dr. Vazquez Monday to review your blood pressures and medication use. RETURN TO THE EMERGENCY ROOM IF ANY NEW OR WORSENING SYMPTOMS. Prescriptions: Butalb/Acetaminophen/Caffeine [Fioricet (50-325-40 mg) Tablet] 1 tab PO Q4H PRN #15 tab PRN Reason: Metoprolol Tartrate [Lopressor 50 mg Tablet] 50 mg PO Q12H #60 tablet Referrals: Aleks VAZQUEZ MD [ACTIVE STAFF] - 03/25/19 Scribe Attestation: 03/20/19 10:45 I personally performed the services described in the documentation, reviewed and edited the documentation which was dictated to the scribe in my presence, and it accurately records my words and actions. I personally performed the services described in the documentation, reviewed and edited the documentation which was dictated to the scribe in my presence, and it accurately records my words and actions.
[2019-03-20 10:58] LABS: ALBUMIN 3.2 g/dL (3.5-5.0); ALKALINE PHOSPHATASE 92 U/L (38-126); ANION GAP 11 (5-19); ASPARTATE AMINO TRANSFERASE 29 U/L (14-36); BILIRUBIN,DIRECT 0.3 mg/dL (0.0-0.4); BILIRUBIN,TOTAL 0.3 mg/dL (0.2-1.3); BLOOD UREA NITROGEN 37 mg/dL (7-20); CALCIUM 8.6 mg/dL (8.4-10.2); CARBON DIOXIDE 28 mmol/L (22-30); CHLORIDE 95 mmol/L (98-107); CREATINE KINASE 235 U/L (30-135); GLUCOSE 216 mg/dL (75-110); POTASSIUM 4.8 mmol/L (3.6-5.0); TOTAL PROTEIN 6.9 g/dL (6.3-8.2)
--- NOTE | 2019-03-20 11:07 | RADIOLOGY REPORT (SQ) ---
EXAM DESCRIPTION: CT HEAD WITHOUT COMPLETED DATE/TIME: 03/20/2019 10:51 am REASON FOR STUDY: headache COMPARISON: CT of the head without contrast from 12/17/2017. TECHNIQUE: Axial images acquired through the brain without intravenous contrast. Images reviewed wi th bone, brain and subdural windows. Additional sagittal and coronal reconstructions were generated. Images stored on PACS. All CT scanners at this facility use dose modulation, iterative reconstruction, and/or weight based d osing when appropriate to reduce radiation dose to as low as reasonably achievable (ALARA). [facility]: Dose Right [facility]: CareDose [facility]: Dose Right [facility]: Teradose 4D [facility]: Smart [employer] RADIATION DOSE: CT Rad equipment meets quality standard of care and radiation dose reduction techniq ues were employed. CTDIvol: 53.2 mGy. DLP: 937 mGy-cm. mGy. LIMITATIONS: None. FINDINGS: The confluent areas of hypoattenuation within the supratentorial periventricular and subco rtical white matter are unchanged and could represent the sequela of chronic microvascular ischemia. There is no acute intracranial hemorrhage, extra-axial fluid collection, vascular territorial infarc t, mass effect or midline shift. There is no effacement of the cerebral sulci or basal subarachnoid cisterns. The lin-white matter differentiation is preserved. The caliber the ventricles is concordant with the degree of sulcation and unchanged from 12/17/2017. The globes are aphakic. There is a mucous retention cyst within the right maxillary sinus. The [place] secretions within the sphenoid sinus are unchanged. There is no paranasal sinus air-fluid level. The mastoid air cells are clear. There is no calvarial fracture. IMPRESSION: 1. No acute intracranial abnormality. 2. Probable mucous retention cyst within the right maxillary sinus and unchanged aerated secretions within the sphenoid sinus. EVIDENCE OF ACUTE STROKE: NO. COMMENT: Quality ID # [id number]: Final reports with documentation of one or more dose reduction techniques (e.g., Automated exposure control, adjustment of the mA and/or kV according to patient size, use of iterative reconstruction technique) TECHNICAL DOCUMENTATION: JOB ID: [id number] [employer]- All Rights Reserved Reading location - IP/workstation name: [email or web address]
[2019-03-20 11:10] LABS: CREATINE KINASE MB 1.99 ng/mL (<4.55); TROPONIN I 0.03 ng/mL
[2019-03-20 11:23] LABS: C-REACTIVE PROTEIN < 5.0 mg/L (<10.0)
[2019-03-20 12:13] LABS: ABSOLUTE LYMPHOCYTES (AUTO) 1.5 10^3/uL (0.5-4.7); ABSOLUTE MONOCYTES (AUTO) 0.5 10^3/uL (0.1-1.4); ABSOLUTE NEUT (AUTO) 3.7 10^3/uL (1.7-8.2); BASOPHILS % (AUTO) 0.8 % (0-2); EOSINOPHILS % (AUTO) 0.8 % (0-6); HEMATOCRIT 32.2 % (36.0-47.0); HEMOGLOBIN 10.8 g/dL (12.0-15.5); LYMPHOCYTES % (AUTO) 25.7 % (13-45); MEAN CORPUSCULAR HEMOGLOBIN 31.9 pg (27.0-33.4); MEAN CORPUSCULAR HGB CONC 33.6 g/dL (32.0-36.0); MEAN CORPUSCULAR VOLUME 95 fl (80-97); MONOCYTES % (AUTO) 9.1 % (3-13); PLATELET COUNT 162 10^3/uL (150-450); RED BLOOD COUNT 3.38 10^6/uL (3.72-5.28); RED CELL DISTRIBUTION WIDTH 16.6 % (11.5-14.0); SEGMENTED NEUTROPHILS % (AUTO) 63.6 % (42-78); TOTAL CELLS COUNTED % (AUTO) 100 %; WHITE BLOOD COUNT 5.8 10^3/uL (4.0-10.5)
[2019-03-20] MEDS ORDERED: NORMAL SALINE 1000 ML 500 ML IV ONE (12:17)
[2019-03-20] MEDS ORDERED: PROCHLORPERAZINE EDISYLATE INJ 10 MG/2 ML VIAL IV ONE ×2 (12:17→13:42)
[2019-03-20] MEDS ORDERED: DIPHENHYDRAMINE HCL 50 MG/ML VIAL IV ONE (12:17)
[2019-03-20] MEDS ORDERED: METOPROLOL TARTRATE PF/INJ 5 MG/5 ML SDV IV ONE (13:44)
[2019-03-20 14:52] VITALS: BP 160/87
== END 2019-03-20 15:39 | disposition home or self-care (01) ==
LOC: ER 10:08
DX: G44.209 Tension-type headache, unspecified, not intractable (principal); I10 Essential (primary) hypertension; R53.1 Weakness; L53.9 Erythematous condition, unspecified; Z94.1 Heart transplant status; Z99.2 Dependence on renal dialysis; Z86.73 Personal history of transient ischemic attack (TIA), and cerebral infarction without residual deficits; Z91.018 Allergy to other foods; Z88.5 Allergy status to narcotic agent; Z88.6 Allergy status to analgesic agent
CPT/HCPCS: 96376; 99284; 96361; 96374; 96375; 36415; 82553; 82550; 85025; 85652; 85610; 85730; 86140; 80053; 84484; 70450; J1200; J3490; J0780; J7030

== ENCOUNTER 2019-06-14 10:38 | Emergency (ER) | payer MEDICARE, MEDICAID ==
--- NOTE | 2019-06-14 11:02 | ER Document Report ---
ED GI/ - General Stated Complaint: CLOUDY URINE Time Seen by Provider: 06/14/19 10:41 Primary Care Provider: Aleks DAS MD [ACTIVE STAFF] - Follow up as needed Notes: Patient is a 68-year-old female with a history of peritoneal dialysis and a heart transplant on immunosuppressants who presents the emergency department with a chief complaint of cloudy drainage from her dialysis catheter. Patient reports she has been on peritoneal dialysis for 2 years. Patient reports that it has been going well and this morning during her transfer she noticed that the fluid was more cloudy than normal. Patient reports she still continues to make a small amount of urine. Patient reports nausea without vomiting or diarrhea. Patient denies abdominal pain. Patient denies drainage, redness or swelling from the peritoneal dialysis catheter site. Patient did attempt to call [facility] and was told to come to the emergency department. Patient reports she is a heart transplant patient who is once immunosuppressants. She reports her heart transplant was 20+ years ago. TRAVEL OUTSIDE OF THE [place] IN LAST 30 DAYS: No - Related Data Allergies/Adverse Reactions: adhesive tape Allergy (Severe, Verified 08/08/18 17:14) rash meperidine HCl [From Demerol] Allergy (Severe, Verified 08/08/18 17:14) Nausea Past Medical History - General Information source: Patient - Social History Smoking Status: Unknown if Ever Smoked Frequency of alcohol use: None Drug Abuse: None Lives with: Family Family History: Reviewed & Not Pertinent - Past Medical History Cardiac Medical History: Reports: Hx Coronary Artery Disease - prior to heart transplant, Hx Hypercholesterolemia, Hx Hypertension Denies: Hx Heart Attack Pulmonary Medical History: Reports: None Denies: Hx Asthma, Hx Bronchitis, Hx COPD, Hx Pneumonia EENT Medical History: Reports: None Neurological Medical History: Reports: Hx Cerebrovascular Accident - 1996 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 Denies: Hx Seizures Endocrine Medical History: Reports: Hx Hypothyroidism Renal/ Medical History: Reports: None. Denies: Hx Peritoneal Dialysis Malignancy Medical History: Reports: None GI Medical History: Reports: Hx Hiatal Hernia. Denies: Hx Hepatitis, Hx Ulcer Musculoskeletal Medical History: Reports Hx Arthritis - "all over" Skin Medical History: Reports None Psychiatric Medical History: Reports: None Traumatic Medical History: Reports: None Infectious Medical History: Reports: None. Denies: Hx Hepatitis Past Surgical History: Reports: Hx Open Heart Surgery - CABG X2, Hx Orthopedic Surgery - left knee, Other - heart transplant 18 years ago. PD catheter for Dialysis 8 months ago. Denies: Hx Mastectomy, Hx Pacemaker - Immunizations Hx Diphtheria, Pertussis, Tetanus Vaccination: Yes Hx Pneumococcal Vaccination: 02/02/11 Review of Systems - Review of Systems Constitutional: No symptoms reported EENT: No symptoms reported Cardiovascular: No symptoms reported Respiratory: No symptoms reported Gastrointestinal: See HPI Genitourinary: No symptoms reported Female Genitourinary: No symptoms reported Musculoskeletal: No symptoms reported Skin: No symptoms reported Hematologic/Lymphatic: No symptoms reported Neurological/Psychological: No symptoms reported Physical Exam - Vital signs Vitals: Resp Pulse Ox 17 100 06/14/19 11:21 06/14/19 11:21 - Notes Notes: GENERAL: Well-appearing, well-nourished and in no acute distress. HEAD: Atraumatic, normocephalic. EYES: Pupils equal round and reactive to light, extraocular movements intact, sclera anicteric, conjunctiva are normal. ENT: Nares patent, oropharynx clear without exudates. Moist mucous membranes. NECK: Normal range of motion, supple without lymphadenopathy or JVD. LUNGS: Breath sounds clear to auscultation bilaterally and equal. No wheezes rales or rhonchi. HEART: Regular rate and rhythm without murmurs, rubs or gallops. ABDOMEN: Soft, nontender, normoactive bowel sounds. No guarding, no rebound. No masses appreciated. Peritoneal dialysis catheter noted to the right lower abdomen. Site is benign without erythema, drainage or edema. Hernia noted inferior to the umbilicus, bulging, soft, skin colored. BACK: No cervical, thoracic, lumbar midline tenderness. No saddle anesthesia, normal distal neurovascular exam. GENITOURINARY: Deferred. EXTREMITIES: Normal range of motion, no pitting or edema. No clubbing or cyanosis. NEUROLOGICAL: Cranial nerves II through XII grossly intact. Normal speech, normal gait. PSYCH: Normal mood, normal affect. SKIN: Warm, Dry, normal turgor, no rashes or lesions noted. Course - Re-evaluation Re-evalutation: 06/14/19 11:[address] Das, as he is the patient's wildlife technician and aviation electrical technician, he states to obtain a Gram stain, culture and cell count of the peritoneal dialysis fluid. We will also obtain basic labs. I did speak with JASWINDER Black who is taking care of the patient and made him aware that someone who is skilled in peritoneal dialysis needs to access her catheter and obtain the specimen - to call Dr. Das for specific orders prior to performing procedure. Wayne Haley RN aware and verbalizes understanding. Patient nontoxic-appearing. I do not have vital signs reported at this time. 06/14/19 11:29 Vital signs were obtained and the patient is not tachycardic, hypotensive or febrile. Patient's abdomen is benign and nontender. 06/14/19 13:59 Labs at the bedside obtaining CBC and CMP. Patient's peritoneal fluid unremarkable with a less than 6 WBC, was clear and colorless. I did make p atient aware of this. Once I have the lab work back I will call Dr. Das to report the findings. Patient resting comfortably in no acute distress. 06/14/19 14:41 Dr. Das was made aware of the blood work findings and results of the peritoneal dialysis fluid. There are no signs of infection at this time. Patient sitting upright on stretcher eating. Patient denies abdominal pain. Patient nontoxic-appearing. I did give patient strict return precautions. If vital signs are stable will discharge home. 06/14/19 16:42 Patient's urinalysis came back with a small amount of leukocytes. Patient's specimen was highly contaminated with 76 epithelial cells. I will add on a urine culture. Patient was not having any urinary symptoms. - Vital Signs Vital signs: Temp Pulse Resp BP Pulse Ox 97.7 F 14 154/88 H 100 06/14/19 11:27 06/14/19 14:01 06/14/19 14:01 06/14/19 14:01 - Laboratory Result Diagrams: 06/14/19 13:55 06/14/19 13:55 Laboratory results interpreted by me: 06/14/19 06/14/19 06/14/19 13:55 13:55 15:45 RBC 3.54 L Hgb 11.9 L Hct 35.0 L MCV 99 H MCH 33.7 H RDW 17.3 H Sodium 136.0 L BUN 35 H Creatinine 9.16 H Est GFR ( Amer) 5 L Est GFR (MDRD) Non-Af 4 L Albumin 3.2 L Urine Protein 100 H Ur Leukocyte Esterase SMALL H Laboratory 06/14/19 06/14/19 06/14/19 13:04 13:55 13:55 WBC 5.2 RBC 3.54 L Hgb 11.9 L Hct 35.0 L MCV 99 H MCH 33.7 H MCHC 34.0 RDW 17.3 H Plt Count 162 Lymph % (Auto) 40.2 [place] % (Auto) 9.3 Eos % (Auto) 1.7 Baso % (Auto) 1.0 Absolute Neuts (auto) 2.5 Absolute Lymphs (auto) 2.1 Absolute Monos (auto) 0.5 Absolute Eos (auto) 0.1 Absolute Basos (auto) 0.1 Seg Neutrophils % 47.8 Sodium 136.0 L Potassium 4.6 Chloride 98 Carbon Dioxide 28 Anion Gap 10 BUN 35 H Creatinine 9.16 H Est GFR ( Amer) 5 L Est GFR (MDRD) Non-Af 4 L Glucose 109 Calcium 9.7 Total Bilirubin 0.3 Direct Bilirubin 0.3 Neonat Total Bilirubin Not Reportable Neonat Direct Bilirubin Not Reportable Neonat Indirect Bili Not Reportable AST 28 ALT 15 Alkaline Phosphatase 75 Total Protein 7.0 Albumin 3.2 L Fluid Type PERITONEAL Fluid Source ABDOMEN Fluid Color COLORLESS Fluid Appearance CLEAR Fluid Viscosity LIQUID Fluid WBC 3 Fluid RBC 6 Discharge - Discharge Clinical Impression: Peritoneal dialysis catheter in place, Nausea Renal failure, chronic Qualifiers: Chronic kidney disease stage: stage 5 Qualified Code(s): N18.5 - Chronic kidney disease, stage 5 Condition: Stable Disposition: HOME, SELF-CARE Additional Instructions: *Today you were seen in the emergency department for a possible peritoneal catheter infection. We did test the specimens which were negative for infection. We do have a culture pending at this time. I did speak with Dr. Das in regards to your results, no antibiotics are required at this time. Please continue using your peritoneal dialysis catheter at home as previously prescribed by Dr. Das. Please return emergency department if you develop fever, abdominal pain, cloudiness of your peritoneal fluid or any new or wor sening symptoms. Referrals: Aleks DAS MD [ACTIVE STAFF] - Follow up as needed
[2019-06-14 13:18] LABS: FLUID TYPE PERITONEAL
[2019-06-14 13:26] LABS: FLUID APPEARANCE CLEAR; FLUID COLOR COLORLESS; FLUID VISCOSITY LIQUID
[2019-06-14 13:28] LABS: FLUID SOURCE ABDOMEN
[2019-06-14 14:10] LABS: ABSOLUTE BASOPHILS # (AUTO) 0.1 10^3/uL (0.0-0.2); ABSOLUTE EOSINOPHILS # (AUTO) 0.1 10^3/uL (0.0-0.6); ABSOLUTE LYMPHOCYTES (AUTO) 2.1 10^3/uL (0.5-4.7); ABSOLUTE MONOCYTES (AUTO) 0.5 10^3/uL (0.1-1.4); ABSOLUTE NEUT (AUTO) 2.5 10^3/uL (1.7-8.2); EOSINOPHILS % (AUTO) 1.7 % (0-6); HEMOGLOBIN 11.9 g/dL (12.0-15.5); LYMPHOCYTES % (AUTO) 40.2 % (13-45); MEAN CORPUSCULAR HEMOGLOBIN 33.7 pg (27.0-33.4); MEAN CORPUSCULAR VOLUME 99 fl (80-97); MONOCYTES % (AUTO) 9.3 % (3-13); PLATELET COUNT 162 10^3/uL (150-450); RED BLOOD COUNT 3.54 10^6/uL (3.72-5.28); RED CELL DISTRIBUTION WIDTH 17.3 % (11.5-14.0); SEGMENTED NEUTROPHILS % (AUTO) 47.8 % (42-78); TOTAL CELLS COUNTED % (AUTO) 100 %; WHITE BLOOD COUNT 5.2 10^3/uL (4.0-10.5)
[2019-06-14 14:28] LABS: ALBUMIN 3.2 g/dL (3.5-5.0); ALKALINE PHOSPHATASE 75 U/L (38-126); ANION GAP 10 (5-19); ASPARTATE AMINO TRANSFERASE 28 U/L (14-36); BILIRUBIN,DIRECT 0.3 mg/dL (0.0-0.4); BILIRUBIN,TOTAL 0.3 mg/dL (0.2-1.3); BLOOD UREA NITROGEN 35 mg/dL (7-20); CALCIUM 9.7 mg/dL (8.4-10.2); CARBON DIOXIDE 28 mmol/L (22-30); CHLORIDE 98 mmol/L (98-107); GLUCOSE 109 mg/dL (75-110); POTASSIUM 4.6 mmol/L (3.6-5.0)
[2019-06-14 16:22] LABS: APPEARANCE,URINE CLOUDY; BILIRUBIN,URINE NEGATIVE (NEGATIVE); COLOR,URINE YELLOW; GLUCOSE, URINE NEGATIVE (NEGATIVE); KETONES,URINE NEGATIVE (NEGATIVE); LEUKOCYTE ESTERASE,URINE SMALL (NEGATIVE); NITRITE,URINE NEGATIVE (NEGATIVE); PROTEIN,URINE 100 mg/dL (NEGATIVE); URINE SPECIFIC GRAVITY 1.008; UROBILINOGEN,URINE NEGATIVE mg/dL (<2.0)
[2019-06-14 20:26] VITALS: BP 150/82
== END 2019-06-14 15:45 | disposition home or self-care (01) ==
LOC: ER 10:38
DX: I12.0 Hypertensive chronic kidney disease with stage 5 chronic kidney disease or end stage renal disease (principal); N18.5 Chronic kidney disease, stage 5; Z99.2 Dependence on renal dialysis; R11.0 Nausea; K46.9 Unspecified abdominal hernia without obstruction or gangrene; Z94.1 Heart transplant status; Z79.899 Other long term (current) drug therapy; Z91.048 Other nonmedicinal substance allergy status; Z88.6 Allergy status to analgesic agent; Z88.5 Allergy status to narcotic agent
CPT/HCPCS: 36415; 80053; 81001; 85025; 87070; 87075; 87205; 89050; 99284

== ENCOUNTER → 2019-06-25 | Outpatient (CLI) | payer MEDICARE, MEDICAID ==
[2019-06-25 11:22] LABS: ALKALINE PHOSPHATASE 73 U/L (38-126); ANION GAP 10 (5-19); ASPARTATE AMINO TRANSFERASE 26 U/L (14-36); BILIRUBIN,DIRECT 0.1 mg/dL (0.0-0.4); BILIRUBIN,TOTAL 0.3 mg/dL (0.2-1.3); BLOOD UREA NITROGEN 37 mg/dL (7-20); CALCIUM 8.2 mg/dL (8.4-10.2); CARBON DIOXIDE 28 mmol/L (22-30); CHLORIDE 94 mmol/L (98-107); GLUCOSE 122 mg/dL (75-110); PHOSPHORUS 6.1 mg/dL (2.5-4.5); POTASSIUM 4.3 mmol/L (3.6-5.0); TOTAL PROTEIN 6.4 g/dL (6.3-8.2)
[2019-06-25 12:37] LABS: ABSOLUTE EOSINOPHILS # (AUTO) 0.1 10^3/uL (0.0-0.6); ABSOLUTE LYMPHOCYTES (AUTO) 1.6 10^3/uL (0.5-4.7); ABSOLUTE MONOCYTES (AUTO) 0.5 10^3/uL (0.1-1.4); ABSOLUTE NEUT (AUTO) 3.2 10^3/uL (1.7-8.2); BASOPHILS % (AUTO) 0.9 % (0-2); HEMATOCRIT 30.8 % (36.0-47.0); HEMOGLOBIN 10.5 g/dL (12.0-15.5); LYMPHOCYTES % (AUTO) 29.6 % (13-45); MEAN CORPUSCULAR HEMOGLOBIN 33.2 pg (27.0-33.4); MEAN CORPUSCULAR HGB CONC 33.9 g/dL (32.0-36.0); MEAN CORPUSCULAR VOLUME 98 fl (80-97); MONOCYTES % (AUTO) 8.8 % (3-13); PLATELET COUNT 173 10^3/uL (150-450); RED BLOOD COUNT 3.15 10^6/uL (3.72-5.28); RED CELL DISTRIBUTION WIDTH 17.4 % (11.5-14.0); SEGMENTED NEUTROPHILS % (AUTO) 58.7 % (42-78); TOTAL CELLS COUNTED % (AUTO) 100 %; WHITE BLOOD COUNT 5.5 10^3/uL (4.0-10.5)
== END ==
LOC: OD 09:50
PROVIDERS: ATTEND Nurse Practitioner Adult Health
DX: Z48.812 Encounter for surgical aftercare following surgery on the circulatory system (principal); Z94.1 Heart transplant status; Z79.899 Other long term (current) drug therapy
CPT/HCPCS: 36415; 80053; 80195; 80197; 83735; 84100; 85025

== ENCOUNTER → 2019-09-05 | Outpatient (CLI) | payer MEDICARE, MEDICAID ==
[2019-09-06 10:25] LABS: HEMATOCRIT 21.5 % (36.0-47.0); MEAN CORPUSCULAR HEMOGLOBIN 33.9 pg (27.0-33.4); MEAN CORPUSCULAR VOLUME 100 fl (80-97); PLATELET COUNT 201 10^3/uL (150-450); RED BLOOD COUNT 2.15 10^6/uL (3.72-5.28); RED CELL DISTRIBUTION WIDTH 20.3 % (11.5-14.0); WHITE BLOOD COUNT 6.2 10^3/uL (4.0-10.5)
[2019-09-06 11:06] LABS: HEMOGLOBIN 7.3 g/dL (12.0-15.5)
== END ==
LOC: OD 10:29
PROVIDERS: ATTEND Internal Medicine Nephrology
DX: D64.9 Anemia, unspecified (principal)
CPT/HCPCS: 36415; 85027

== ENCOUNTER → 2019-09-12 | Outpatient (CLI) | payer MEDICARE, MEDICAID | LOC: OD 08:47 | PROVIDERS: ATTEND Internal Medicine Nephrology | DX: D64.9 Anemia, unspecified (principal); E83.39 Other disorders of phosphorus metabolism | CPT/HCPCS: 36415; 84100 ==

== ENCOUNTER → 2020-01-07 | Outpatient (CLI) | payer MEDICARE, MEDICAID ==
[2020-01-07 11:15] LABS: ALKALINE PHOSPHATASE 94 U/L (38-126); ANION GAP 9 (5-19); ASPARTATE AMINO TRANSFERASE 35 U/L (14-36); BILIRUBIN,DIRECT 0.4 mg/dL (0.0-0.4); BILIRUBIN,TOTAL 0.4 mg/dL (0.2-1.3); BLOOD UREA NITROGEN 30 mg/dL (7-20); CALCIUM 8.6 mg/dL (8.4-10.2); CARBON DIOXIDE 30 mmol/L (22-30); CHLORIDE 95 mmol/L (98-107); GLUCOSE 133 mg/dL (75-110); PHOSPHORUS 4.6 mg/dL (2.5-4.5); POTASSIUM 4.2 mmol/L (3.6-5.0); TOTAL PROTEIN 6.5 g/dL (6.3-8.2)
[2020-01-08 10:00] LABS: HEMATOCRIT 26.3 % (36.0-47.0); HEMOGLOBIN 8.9 g/dL (12.0-15.5); MEAN CORPUSCULAR HEMOGLOBIN 31.6 pg (27.0-33.4); MEAN CORPUSCULAR VOLUME 93 fl (80-97); RED BLOOD COUNT 2.83 10^6/uL (3.72-5.28); RED CELL DISTRIBUTION WIDTH 17.4 % (11.5-14.0)
[2020-01-08 10:01] LABS: PLATELET COUNT 220 10^3/uL (150-450)
[2020-01-08 10:06] LABS: ABSOLUTE LYMPHOCYTES# (MANUAL) 1.5 10^3/uL (0.5-4.7); ABSOLUTE MONOCYTES # (MANUAL) 0.5 10^3/uL (0.1-1.4); ANISOCYTOSIS 1+; BAND NEUTROPHILS % (MANUAL) 2 % (3-5); BASOPHILS % (MANUAL) 0 % (0-2); EOSINOPHILS % (MANUAL) 3 % (0-6); LYMPHOCYTES % (MANUAL) 25 % (13-45); MONOCYTES % (MANUAL) 9 % (3-13); POLYCHROMASIA SLIGHT; SEGMENTED NEUTROPHILS % (MAN) 61 % (42-78); TOTAL CELLS COUNTED 100
[2020-01-08 10:07] LABS: HYPOCHROMASIA SLIGHT; PLATELET CLUMPS PRESENT; PLATELET COMMENT ADEQUATE
[2020-01-08 10:09] LABS: HEMATOCRIT 26.3 % (36.0-47.0); HEMOGLOBIN 8.9 g/dL (12.0-15.5); MEAN CORPUSCULAR HEMOGLOBIN 31.6 pg (27.0-33.4); MEAN CORPUSCULAR VOLUME 93 fl (80-97); RED BLOOD COUNT 2.83 10^6/uL (3.72-5.28); RED CELL DISTRIBUTION WIDTH 17.4 % (11.5-14.0)
[2020-01-08 10:10] LABS: PLATELET COUNT 220 10^3/uL (150-450)
[2020-01-09 07:06] LABS: TACROLIMUS (FK506) 6.4 ng/mL (2.0-20.0)
== END ==
LOC: OD 09:59
PROVIDERS: ATTEND Nurse Practitioner Adult Health
DX: Z51.81 Encounter for therapeutic drug level monitoring (principal); Z94.1 Heart transplant status; Z79.899 Other long term (current) drug therapy
CPT/HCPCS: 36415; 80053; 80195; 80197; 83735; 84100; 85025

== ENCOUNTER → 2020-01-28 | Outpatient (CLI) | payer MEDICARE, MEDICAID ==
[2020-01-28 11:41] LABS: ALBUMIN 2.9 g/dL (3.5-5.0); ALKALINE PHOSPHATASE 103 U/L (38-126); ANION GAP 8 (5-19); ASPARTATE AMINO TRANSFERASE 38 U/L (14-36); BILIRUBIN,DIRECT 0.4 mg/dL (0.0-0.4); BILIRUBIN,TOTAL 0.4 mg/dL (0.2-1.3); BLOOD UREA NITROGEN 31 mg/dL (7-20); CALCIUM 8.6 mg/dL (8.4-10.2); CARBON DIOXIDE 29 mmol/L (22-30); CHLORIDE 95 mmol/L (98-107); GLUCOSE 110 mg/dL (75-110); PHOSPHORUS 4.9 mg/dL (2.5-4.5); POTASSIUM 4.5 mmol/L (3.6-5.0); TOTAL PROTEIN 6.5 g/dL (6.3-8.2)
[2020-01-28 11:42] LABS: ABSOLUTE EOSINOPHILS # (AUTO) 0.1 10^3/uL (0.0-0.6); ABSOLUTE LYMPHOCYTES (AUTO) 1.8 10^3/uL (0.5-4.7); ABSOLUTE MONOCYTES (AUTO) 0.5 10^3/uL (0.1-1.4); ABSOLUTE NEUT (AUTO) 2.6 10^3/uL (1.7-8.2); EOSINOPHILS % (AUTO) 2.1 % (0-6); HEMATOCRIT 27.7 % (36.0-47.0); HEMOGLOBIN 9.6 g/dL (12.0-15.5); LYMPHOCYTES % (AUTO) 35.5 % (13-45); MEAN CORPUSCULAR HEMOGLOBIN 32.3 pg (27.0-33.4); MEAN CORPUSCULAR HGB CONC 34.7 g/dL (32.0-36.0); MEAN CORPUSCULAR VOLUME 93 fl (80-97); MONOCYTES % (AUTO) 10.2 % (3-13); RED BLOOD COUNT 2.98 10^6/uL (3.72-5.28); RED CELL DISTRIBUTION WIDTH 18.4 % (11.5-14.0); SEGMENTED NEUTROPHILS % (AUTO) 51.2 % (42-78); TOTAL CELLS COUNTED % (AUTO) 100 %; WHITE BLOOD COUNT 5.1 10^3/uL (4.0-10.5)
[2020-01-28 11:44] LABS: PLATELET COUNT 227 10^3/uL (150-450)
[2020-01-30 07:07] LABS: TACROLIMUS (FK506) 5.9 ng/mL (2.0-20.0)
== END ==
LOC: OD 10:36
PROVIDERS: ATTEND Nurse Practitioner Adult Health
DX: Z94.1 Heart transplant status (principal)
CPT/HCPCS: 36415; 80053; 80195; 80197; 83735; 84100; 85025

== ENCOUNTER → 2020-02-13 | Outpatient (CLI) | payer MEDICARE, MEDICAID ==
[2020-02-13 13:55] LABS: HEMATOCRIT 23.3 % (36.0-47.0); MEAN CORPUSCULAR HEMOGLOBIN 31.6 pg (27.0-33.4); MEAN CORPUSCULAR HGB CONC 34.1 g/dL (32.0-36.0); MEAN CORPUSCULAR VOLUME 92 fl (80-97); RED BLOOD COUNT 2.52 10^6/uL (3.72-5.28); WHITE BLOOD COUNT 8.1 10^3/uL (4.0-10.5)
[2020-02-13 14:44] LABS: PLATELET COUNT 186 10^3/uL (150-450)
== END ==
LOC: OD 13:26
PROVIDERS: ATTEND Internal Medicine Nephrology
DX: D64.9 Anemia, unspecified (principal)
CPT/HCPCS: 36415; 84165; 84443; 85027

== ENCOUNTER → 2020-03-03 | Outpatient (CLI) | payer MEDICARE, MEDICAID | LOC: OD 08:01 | PROVIDERS: ATTEND Nurse Practitioner Family | DX: E03.9 Hypothyroidism, unspecified (principal); E11.9 Type 2 diabetes mellitus without complications | CPT/HCPCS: 36415 ==

== ENCOUNTER → 2020-03-31 | Outpatient (CLI) | payer MEDICARE, MEDICAID | LOC: OD 11:20 | PROVIDERS: ATTEND Nurse Practitioner Family | DX: E03.9 Hypothyroidism, unspecified (principal) | CPT/HCPCS: 36415 ==